=== PATIENT | male | born 1950 | race Caucasian/White ===

== ENCOUNTER 2024-12-20 11:54 | Inpatient (IN) | payer OTHER, SELFPAY ==
[2024-12-20] VITALS (10 sets, daily range): BP systolic 92–142; BP diastolic 51–76; PULSE 78–87; RESP 13–18; TEMP 36.5–37.3; O2SAT 82–99; BMI 42.6; BMI 35.7
--- NOTE | 2024-12-20 | ECG_ITS ---
Test Reason : stroke Blood Pressure : */* mmHG Vent. Rate : 86 BPM Atrial Rate : 86 BPM P-R Int : 204 ms QRS Dur : 98 ms QT Int : 382 ms P-R-T Axes : 30 0 38 degrees QTcB Int : 457 ms Artifact in tracing Normal sinus rhythm Normal ECG No previous ECGs available Referred By: Eliud Treviño Electronically Signed By: DYLON BELTRAN
--- NOTE | ~2024-12-20 | CT_ITS ---
EXAMINATION: CT HEAD WITHOUT CONTRAST (STROKE PROTOCOL) CLINICAL INFORMATION: Stroke protocol. COMPARISON: None available. TECHNIQUE: Contiguous axial imaging was performed from the skull base to vertex without intravenous administration of contrast. This CT examination was performed using dose optimization techniques as appropriate, variously including the following: *Automated exposure control *Adjustment of mA and/or kV according to patient size (this includes techniques or standardized protocols for targeted exams where dose is matched to indication/reason for exam; i.e. extremities or head) *Use of iterative reconstruction technique FINDINGS: No acute intracranial hemorrhage, mass effect, midline shift, hydrocephalus or herniation. Bilateral multifocal patchy and confluent deep periventricular white matter hypodensities. 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 Prominence of the extra-axial CSF spaces cerebral sulci and ventricles. Old lacunar infarcts in the basal ganglia. Cavum septal pellucidum and cavum Verga, congenital variant. Sellar/suprasellar region demonstrated no gross masses or focal hemorrhages. Craniocervical junction is intact. Calcified plaques in the cavernous supracavernous segments both ICA. No acute cortical disruption within the bony calvarium. No air-fluid levels in the included paranasal sinuses. Tympanic cavities and mastoid air cells are aerated. Probable high riding right internal jugular bulb. CT/CT head for STROKE IMPRESSION: No acute intracranial hemorrhage. Small vessel occlusive disease. Superimposed acute stroke/nonhemorrhagic ischemia cannot be excluded. Probable old encephalomalacic contusions, frontal rectus gyrus. Global cerebral atrophy. This critical result was discussed with emergency physician Dr. Eliud Treviño at 12:11 PM hours on December 20, 2024.. It was ascertained that the content and urgency of the report was understood at the time of direct communication. Electronically signed by: Augustin Chang MD 12/20/2024 12:16 PM [facility]
--- NOTE | ~2024-12-20 | CT_ITS ---
EXAMINATION: CT CERVICAL SPINE WITHOUT CONTRAST CLINICAL INFORMATION: Trauma. COMPARISON: None available. TECHNIQUE: Spiral CT imaging of the cervical spine performed in axial plane without contrast. Multiplanar reformatted images were constructed from the axial data set. This CT examination was performed using dose optimization techniques as appropriate, variously including the following: *Automated exposure control *Adjustment of mA and/or kV according to patient size (this includes techniques or standardized protocols for targeted exams where dose is matched to indication/reason for exam; i.e. extremities or head) *Use of iterative reconstruction technique FINDINGS: CORONAL ALIGNMENT: -Normal. SAGITTAL ALIGNMENT: -Minimal reversal of the normal lordosis seen at C6. -Trace degenerative anterolisthesis C3 on C4. Sagittal alignment otherwise anatomic. C1-C2 AND CRANIOCERVICAL JUNCTION: -Intact and normally aligned. Mild degenerative arthrosis at the anterior atlantoaxial articulation. VERTEBRAL BODIES AND FACETS: -No definite fracture, compression deformity, traumatic subluxation, or suspicious bone lesion. -Normal facet alignment bilaterally. The left C3-4 facets are fused. -Multilevel hypertrophic degenerative facet change bilaterally, most significant spanning C2-C5. DISCS: -Moderate multilevel disc degeneration present, most significant C5-6 and C6-7. -Spurring of the C2-3 disc. CENTRAL CANAL: -Patent within the confines of modality. No high-grade central canal narrowing is evident. PREVERTEBRAL AND PARAVERTEBRAL SOFT TISSUES: -Normal. -Retropharyngeal course of the right CCA and ICA. -Partial retropharyngeal course of the left CCA. -Moderate bilateral carotid bulb calcification. -Thyroid is normal in imaging appearance. LUNG APICES: -Diffuse opacity in the right lung apex, unable to further characterize. CT/CT cervical spine wo IV con IMPRESSION: 1. No CT evidence of acute cervical spine fracture or injury. Degenerative spondylosis as discussed. 2. Diffuse opacity in the right lung apex, unable to characterize further. Recommend correlating with chest radiograph. 3. Moderate bilateral carotid bulb calcification in retropharyngeal ICAs. Electronically signed by: Bandar Davison MD 12/20/2024 12:33 PM EST
--- NOTE | ~2024-12-20 | XR_ITS ---
EXAMINATION: XR CHEST CLINICAL INFORMATION: sob COMPARISON: None available. TECHNIQUE: Frontal view of the chest was obtained. FINDINGS: Cardiomediastinal silhouette overlaps the right hemithorax. Patchy opacities in the right lung. The left lung is aerated. No pneumothorax. There is a traumatic deformity with likely dislocated right common clavicular joint. XR/XR chest 1V IMPRESSION: Acute airspace disease with questionable atelectatic component suggesting intrinsic versus extrinsic compression upon the right pulmonary airway. Traumatic deformity right acromioclavicular joint. Malignancy cannot be excluded. Recommend contrast-enhanced CT chest. Electronically signed by: Augustin Chang MD 12/20/2024 01:38 PM EST
--- NOTE | ~2024-12-20 | CT_ITS ---
CLINICAL HISTORY: abnormal cxr CT CHEST WITHOUT CONTRAST Comparison: CR/OR/SR - XR CHEST 1V - 12/20/24 13:09 EST Findings: There is significant respiratory motion artifact. The heart is enlarged. There is no significant pericardial effusion. The thoracic aorta is ectatic with no aneurysmal dilatation. No thyromegaly or mediastinal lymphadenopathy. Small hiatal hernia. Multifocal airspace opacities and reticular interstitial changes throughout the right lung with right-sided volume loss. The trachea and left mainstem bronchus are patent. The mid to distal right mainstem bronchus appears attenuated /narrowed. There is limited evaluation of the hilar regions without IV contrast. No pleural effusion or pneumothorax. Probable bilateral renal cysts. The liver appears enlarged. Thoracic spondylosis with multilevel endplate osteophytes. IMPRESSION: 1. Image degradation secondary to significant respiratory motion artifact. 2. Multifocal infiltrates in the right lung secondary to inflammatory or infectious process. 3. Narrowing of the mid to distal right mainstem bronchus with no definite mucous plugging, secretions or endobronchial lesion. An adjacent mass with intrinsic compression cannot be excluded on the basis of this study alone. This document has been electronically signed by: Andria Marsh DO on 12/20/2024 17:35:20
--- NOTE | 2024-12-20 12:13 | ED_ITS ---
HPI - Fall General Chief Complaint: Fall Stated Complaint: [place] fall at 9am, r sided weakness, -thinners Time Seen by Provider: 12/20/24 11:59 Source: EMS Limitations: altered mental status History of Present Illness HPI Narrative: This is a 74 years old male not ambulatory at baseline history of dementia was brought here to a fall and altered mental status. According to the [facility] note he was found in the floor he was hypoxic and ambulance was called. He arrived lethargic unable to give any history. Patient is not anticoagulated patient has history of COPD. At baseline depend on all ADL MD complaint: fall Onset (ago): hour(s) (2) Fall witnessed: no Place fall occurred: [facility] Loss of consciousness: unsure Symptoms prior to fall: other (unknown) Related Data Allergies Allergy/AdvReac Type Severity Reaction Status Date / Time divalproex sodium Allergy Unknown Verified 12/20/24 12:05 [From [facility]] Review of Systems 2 Review of Systems: Yes Unobtainable due to mental condition and Unobtainable due to mental status [facility] Past Medical History Attestation statement: The following information was validated with the patient. [facility] Narrative: He has a history of COPD, dementia, he does not ambulate, baseline is incontinent of urine, dependent on the ADL, Social History Social History Advance Directives: Yes Advance Directives Information Provided: Yes Advance Directives on File: No Do you have a plan to hurt others: No Plan Physical Exam 2 Vital Signs: Vital Signs: Last Vital Signs Temp 99.1 F 12/20/24 12:38 Pulse 87 12/20/24 13:55 Resp 14 12/20/24 13:55 BP 101/64 12/20/24 13:55 Pulse Ox 92 12/20/24 13:55 O2 Del Method Nasal Cannula 12/20/24 13:55 O2 Flow Rate 6 12/20/24 13:55 BMI result Body Mass Index 42.6 No acute distress lethargic but easily arousable Patient is lethargic Const: General: no acute distress Nutritional Appearance: well nourished HEENT: Other: Examination of the head eyes ears nose and throat showed no facial droop no sign of trauma Head: Yes normal to inspection Ears: hearing grossly normal bilaterally General nose exam: Normal external nose present Face and sinus: Yes normal facial exam Mouth: Normal oral and palatal mucosa present Neck: Neck: Yes normal visual inspection and Yes full ROM Chest: Chest palpation & inspection: normal inspection of the chest Resp: Effort & Inspection: normal respiratory effort Auscultation: clear to auscultation bilaterally Cardio: Jugular venous distension: no JVD Rate: regular rate Rhythm: r egular rhythm GI: Inspection: Yes normal to inspection Palpation (GI): Soft to palpation, not firm and nontender Auscultation: normal bowel sounds Skin: General skin exam: no rashes or lesions noted Lesions: no lesions Rashes: no rashes Neuro: Other: He is awake and alert at this point is no focal he is able to raise both in the against gravity he is answering question Cranial nerves: Yes CN's II-XII intact bilaterally Course Reevaluation(s) Reevaluation #1: more awake IV established and secured by me Time: 14:10 Reevaluation #2: Pulled out his IV, uncooperative he has a history of dementia, he is on olanzapine at the [facility] we will give me his olanzapine. Very difficult stick another IV was placed in the right hand. Chest x-ray reviewed possible right pneumonia. His blood pressure is good, he has no tachycardic he is not tachypneic, he does have an oxygen requirement. He is I sensitive troponin is elevated but he has a normal electrocardiogram. IV antibiotic ordered, we will give him some fluids. We will repeat the troponin. At baseline he is quality of life is poor, he is not ambulatory he needs help for his ADL he is incontinent of urine. Looks like he has a guardian who is a needle straightener. ( Ginger Jones [phone]). Time: 15:35 Reevaluation #3: Spoke with cassidy Jones layer cell [phone] pt is full code Time: 15:36 Medications Administered Generic Name Dose Route Start Last Admin Trade Name Freq PRN Reason Stop Dose Admin Vancomycin HCl 1,250 mg/ 250 mls @ 166.667 mls/hr 12/20/24 14:48 12/20/24 15:03 Sodium Chloride IV 12/20/24 16:17 166.67 mls/hr ONCE ONE Administration Discontinued Medications Generic Name Dose Route Start Last Admin Trade Name Freq PRN Reason Stop Dose Admin Sodium Chloride 1,000 mls @ 999 mls/hr 12/20/24 13:30 12/20/24 14:38 Ns IVCONT 12/20/24 14:30 Infused .Q1H1M ERICKA Infusion Cefepime HCl 2 gm in 50 mls @ 100 mls/hr 12/20/24 14:38 12/20/24 15:32 Maxipime IV 12/20/24 15:07 Infused ONCE ONE Infusion Procedures EJ/Peripheral Line Arm L: Time Out Performed: Yes Skin Cleansed in Sterile Fashion: Yes Size (gauge): 20 IV Secured and Dressing Applied: Yes Patient Tolerated Procedure: well Additional Comments: I was asked by RN to establish IV,difficult stick. Under US guided cannulated left basilic vein with 20 G long catheter,blood obtained ,catheter flashed,line secured,tolerated procedure wellr Medical Decision Making Medical Decision Making MDM Narrative: Patient presented with altered mental status after fall we will get a CT C-spine Differential Diagnosis Differential Diagnoses: The differential diagnosis associated with the presentation includes Subdural hematoma epidural hematoma/hypoglycemia/hypercarbia Admission/Observation Consideration of admission/observation: Escalation of care including admission/observation considered Consult Healthcare Provider Management of the patient was discussed with: Hospitalist Lab Data MDM Lab Attestation statement: I reviewed the patient's lab results. 12/20/24 12:54 12/20/24 12:54 Labs: Lab Results 12/20/24 12/20/24 12/20/24 Range/Units 12:54 13:03 14:57 WBC 10.7 (4.8-10.8) X10*3/uL RBC 5.02 (4.60-5.80) X10*6/uL Hgb 13.5 L (14.0-18.0) g/dl Hct 43.8 (42.0-52.0) % MCV 87.3 (80.0-98.0) fL MCH 26.9 L (27.0-33.0) pg MCHC 30.8 L (31.0-36.0) g/dl RDW 15.6 (11.0-16.0) % Plt Count 226 (160-400) X10*3/uL MPV 10.9 (9.4-12.4) fL Immature Gran % (Auto) 0.5 H (0.0-0.4) % Neut % (Auto) 79.2 H (45-73) % Lymph % (Auto) 8.6 L (20-40) % [place] % (Auto) 6.1 (2-11) % Eos % (Auto) 5.1 H (0-4) % Baso % (Auto) 0.5 (0-2) % Lymph # (Auto) 0.9 L (1.2-4.9) X10*3/uL [place] # (Auto) 0.7 (0.1-1.2) X10*3/uL Eos # (Auto) 0.6 H (0.0-0.4) X10*3/uL Baso # (Auto) 0.1 (0.0-0.2) X10*3/uL Abs Immat Gran (auto) 0.05 H (0.00-0.03) X10*3/uL Absolute Neuts (auto) 8.5 H (2.0-8.3) x10*3/uL Absolute Nucleated RBC 0.000 (0.0-0.012) X10*3/uL Nucleated RBC % (auto) 0.0 (0.0-0.2) /100WBC VBG pH 7.35 (7.32-7.43) VBG pCO2 46 mmHg VBG pO2 29 mmHg VBG HCO3 26 (22-26) mmol/L VBG O2 Saturation 39.0 % VBG Base Excess 0.2 mmol/L Sodium 145 (135-145) mmol/L Potassium 4.0 (3.3-5.1) mmol/L Chloride 114 H (96-108) mmol/L Carbon Dioxide 24 (22-29) mmol/L Anion Gap 11 L (12-20) BUN 37 H (9-16) mg/dL Creatinine 1.30 (0.5-1.4) mg/dL Estim Creat Clear Calc 83.9 Estimated GFR 54 Random Glucose 96 (60-115) mg/dL Lactic Acid 2.7 H* (0.5-2.0) mmol/L Calcium 10.0 (8.4-10.2) mg/dL Magnesium 2.5 (1.6-2.6) mg/dL Total Bilirubin 0.3 (0.0-1.0) mg/dL Direct Bilirubin 0.2 (0.0-0.5) mg/dL AST 46 H (5-37) U/L ALT 40 (0-40) U/L Alkaline Phosphatase 66 (39-117) U/L Troponin I High Sens 444.5 H* 375.1 H* (<3.5-35.0) ng/L Total Protein 8.4 H (6.5-8.0) g/dL Albumin 3.9 (3.5-5.0) g/dL Urine Color Urine Appearance Urine pH (5.0-9.0) Ur Specific [place] (1.005-1.025) Urine Protein (Neg-Trace) mg/dL Urine Glucose (UA) (Negative) mg/dL Urine Ketones (Negative) mg/dL Urine Blood (Negative) Urine Nitrite (Negative) Ur Leukocyte Esterase (Negative) 12/20/24 Range/Units 15:22 WBC (4.8-10.8) X10*3/uL RBC (4.60-5.80) X10*6/uL Hgb (14.0-18.0) g/dl Hct (42.0-52.0) % MCV (80.0-98.0) fL MCH (27.0-33.0) pg MCHC (31.0-36.0) g/dl RDW (11.0-16.0) % Plt Count (160-400) X10*3/uL MPV (9.4-12.4) fL Immature Gran % (Auto) (0.0-0.4) % Neut % (Auto) (45-73) % Lymph % (Auto) (20-40) % [place] % (Auto) (2-11) % Eos % (Auto) (0-4) % Baso % (Auto) (0-2) % Lymph # (Auto) (1.2-4.9) X10*3/uL [place] # (Auto) (0.1-1.2) X10*3/uL Eos # (Auto) (0.0-0.4) X10*3/uL Baso # (Auto) (0.0-0.2) X10*3/uL Abs Immat Gran (auto) (0.00-0.03) X10*3/uL Absolute Neuts (auto) (2.0-8.3) x10*3/uL Absolute Nucleated RBC (0.0-0.012) X10*3/uL Nucleated RBC % (auto) (0.0-0.2) /100WBC VBG pH (7.32-7.43) VBG pCO2 mmHg VBG pO2 mmHg VBG HCO3 (22-26) mmol/L VBG O2 Saturation % VBG Base Excess mmol/L Sodium (135-145) mmol/L Potassium (3.3-5.1) mmol/L Chloride (96-108) mmol/L Carbon Dioxide (22-29) mmol/L Anion Gap (12-20) BUN (9-16) mg/dL Creatinine (0.5-1.4) mg/dL Estim Creat Clear Calc Estimated GFR Random Glucose (60-115) mg/dL Lactic Acid (0.5-2.0) mmol/L Calcium (8.4-10.2) mg/dL Magnesium (1.6-2.6) mg/dL Total Bilirubin (0.0-1.0) mg/dL Direct Bilirubin (0.0-0.5) mg/dL AST (5-37) U/L ALT (0-40) U/L Alkaline Phosphatase (39-117) U/L Troponin I High Sens (<3.5-35.0) ng/L Total Protein (6.5-8.0) g/dL Albumin (3.5-5.0) g/dL Urine Color Yellow Urine Appearance Hazy Urine pH 8.5 (5.0-9.0) Ur Specific [place] 1.010 (1.005-1.025) Urine Protein 30 (1+) H (Neg-Trace) mg/dL Urine Glucose (UA) Negative (Negative) mg/dL Urine Ketones Negative (Negative) mg/dL Urine Blood Small (1+) H (Negative) Urine Nitrite Positive H (Negative) Ur Leukocyte Esterase Large (3+) H (Negative) Independent Interpretation I performed an independent interpretation of an: EKG and Plain X-Ray Interpretation: Normal sinus rhythm rate [address]-T changes I personally reviewed interpreted the chest x-ray as right pneumonia Radiology Impression Discussion of test interpretation with radiology: I have reviewed the radiologist's reading. Independent Historian Clinical information obtained from an independent historian. History obtained from or confirmed by: EMS [facility] documents Chronic Conditions Patient?s care impacted by: Other (COPD/dementia) Critical Care Time Critical Care Time Critical Care Time: Yes Total Critical Care Time: 90 Attestation: taking care of the pt,reviewing NH record ,speaking with proxy/hospitalist Discharge Plan Discharge Clinical Impression: Hypoxia, Elevated troponin Altered mental status Qualifiers: Altered mental status type: unspecified Qualified Code(s): R41.82 - Altered mental status, unspecified Pneumonia involving right lung Qualifiers: Pneumonia type: due to unspecified organism Lung location: unspecified part of lung Qualified Code(s): J18.9 - Pneumonia, unspecified organism Patient Disposition: Admitted As Inpatient Print Language: Slovak
[2024-12-20 13:02] LABS: MANUAL DIFF FLAG NO
[2024-12-20 13:03] LABS: Basophils Absolute Auto 0.1 X10*3/uL (0.0-0.2); Basophils Percent Auto 0.5 % (0-2); Eosinophils Absolute Auto 0.6 X10*3/uL (0.0-0.4); Eosinophils Percent Auto 5.1 % (0-4); Hematocrit 43.8 % (42.0-52.0); Hemoglobin 13.5 g/dl (14.0-18.0); Imm Gran Abs Auto 0.05 X10*3/uL (0.00-0.03); Imm Gran Pct Auto 0.5 % (0.0-0.4); Lymphocytes Absolute Auto 0.9 X10*3/uL (1.2-4.9); Lymphocytes Percent Auto 8.6 % (20-40); Mean Corpuscular HGB Conc 30.8 g/dl (31.0-36.0); Mean Corpuscular Hemoglobin 26.9 pg (27.0-33.0); Mean Corpuscular Volume 87.3 fL (80.0-98.0); Mean Platelet Volume 10.9 fL (9.4-12.4); Monocytes Absolute Auto 0.7 X10*3/uL (0.1-1.2); Monocytes Percent Auto 6.1 % (2-11); Neutrophils Absolute Auto 8.5 x10*3/uL (2.0-8.3); Neutrophils Percent Auto 79.2 % (45-73); Platelet Count 226 X10*3/uL (160-400); Red Blood Count 5.02 X10*6/uL (4.60-5.80); Red Cell Distribution Width 15.6 % (11.0-16.0); White Blood Count 10.7 X10*3/uL (4.8-10.8)
[2024-12-20 13:08] LABS: VBG Base Excess 0.2 mmol/L; VBG HCO3 26 mmol/L (22-26); VBG pCO2 46 mmHg; VBG pH 7.35 (7.32-7.43); VBG pO2 29 mmHg
[2024-12-20 13:09] LABS: Venous Blood Gas Refer to POC result
--- NOTE | 2024-12-20 13:15 | PC.NURSE ---
[facility] unwitnessed fall x 0900 this morning. pt found on ground after being down for unknown amount of time. ?headstrike, ?loc, -thinners. pt noted to be 82% on RA - placed on 15L via nonrebreather by EMS w/ good effect. SNF also reports increased weakness/AMS. upon EMS arrival - pt alert and oriented to name only. per EMS, this is pt's baseline. pt uncooperative, aggressive towards staff, noncompliant w/ medical devices. attempted to place pt on 2L via NC as he is on RA baseline but pt unable to maintain SPO2. pt titrated up to 6L via NC but unable to tolerate. pt then transitioned to 6L via oxymask. no respiratory distress noted. no wheezing noted. no sob/wob noted. respirations even/unlabored. pt is an extremely difficult stick. multiple attempts made at obtaining IV access as well as tech obtaining blood work. 20g ultrasound guided IV placed in the left upper arm by MD. labs obtained/sent to lab. IV access wrapped w/ gauze for safety precautions. pt turned/repositioned to comfort. [place] catheter in place d/t pt being incontinent of urine/fecal matter upon EMS arrival. plan of care ongoing. call patel placed within reach.
[2024-12-20 13:20] LABS: Alanine Aminotransferase 40 U/L (0-40); Albumin Level 3.9 g/dL (3.5-5.0); Alkaline Phosphatase 66 U/L (39-117); Anion Gap 11 (12-20); Aspartate Amino Transferase 46 U/L (5-37); Bilirubin Direct 0.2 mg/dL (0.0-0.5); Bilirubin Total 0.3 mg/dL (0.0-1.0); Blood Urea Nitrogen 37 mg/dL (9-16); Carbon Dioxide 24 mmol/L (22-29); Chloride 114 mmol/L (96-108); Creatinine Clr Calc Pharmacy 83.9; Estimated Glomerular Filt Rate 54; Glucose Random 96 mg/dL (60-115); Magnesium 2.5 mg/dL (1.6-2.6); Sodium 145 mmol/L (135-145); Total Protein 8.4 g/dL (6.5-8.0)
[2024-12-20 13:29] LABS: Troponin-I High Sensitivity 444.5 ng/L (<3.5-35.0)
[2024-12-20] MEDS: 0.9 % Sodium Chloride 1,000 ML 999 ML IVCONT (13:37)
[2024-12-20] MEDS: cefEPime HCl/D5W 2 GM/50 ML PIGGYBACK IV (15:02)
[2024-12-20] MEDS: vancomycin HCL 1,250 MG in 0.9 % Sodium Chloride 250 ML 166.67 MG IV (15:03)
--- NOTE | 2024-12-20 15:08 | PC.NURSE ---
pt remains altered/uncooperative w/ staff and interfering w/ medical equipment. pt ripping off oxygen, monitoring and evaluation advisor, and discontinued ultrasound guided IV. pt placed in sift restraints. 22gIV placed in the right thumb - repeat labs obtained/sent to lab. abx administered per provider order. pt otherwise remains on 6L via NC at this time. no apparent respiratory distress. no sob/wob noted. respirations even/unlabored. plan of care ongoing.
[2024-12-20 15:31] LABS: Appearance Urine Hazy; Color Urine Yellow; Glucose Urine UA Negative (Negative); Leukocyte Esterase Urine Large (3+) (Negative); Nitrite Urine Positive (Negative); PH 8.5 (5.0-9.0); UMIC TRIGGER UACC YES; Urine Blood Small (1+) (Negative); Urine Ketones Negative (Negative); Urine Protein 30 (1+) mg/dL (Neg-Trace)
[2024-12-20 15:34] LABS: Lactic Acid 2.7 mmol/L (0.5-2.0)
[2024-12-20 15:38] LABS: Troponin-I High Sensitivity 375.1 ng/L (<3.5-35.0)
[2024-12-20 15:41] LABS: RBC Urine 0-2 /HPF (0-2); UACC Culture Trigger YES; WBC Urine 21-50 /HPF (0-5)
[2024-12-20 15:42] LABS: Bacteria Urine 4+ (None Seen); Hyaline Casts Urine 0-2 /LPF (0-2); Other Crystals Urine Present
[2024-12-20] MEDS: Albuterol/Iprat 2.5/0.5MG 3 ML AMPUL.NEB INHALE ×2 (15:47→20:11)
[2024-12-20] MEDS: OLANZapine 7.5 MG TABLET PO (15:47)
--- NOTE | 2024-12-20 16:00 | PC.NURSE ---
pt passed nursing swallow evaluation w/o difficulty. pt medicated per provider order. medication crushed/administered w/ applesauce. pt tolerated well. pt otherwise remains in soft restraints at this time d/t continuously attempting to interfere w/ medical equipment. pt currently remains on 3L via oxymask at this time. plan of care ongoing.
--- NOTE | 2024-12-20 16:02 | PM.IMHP ---
History of Present Illness Date of Service: 12/20/24 Chief Complaint: Fall 74 m from SNF brought in after fall. He has advanced cognitive impairment and doesn't communicate and presented from assisted after having an unwitnessed from , he was brought in [address] showed no acute finding, Cervical spine CT no fracture. A routine CXR showed a Pneumonia, O2 saturation is 88 to 89 on room air and better with oxygen. . WBC is normal, troponin I level was 444 now 375, he reports no chest pain. ECG showed no acute ischemic changes. He has been very agitated, removing IVs, and resisting care and was given Zyprexa and soft wrist restraint. Review of Systems Review of Systems: [facility] Social History Household Members: Other Housing: Snf Comment: sitter in room Patient Tobacco Use Status: Tobacco use Unknown Use of substances other than those prescribed or required for medical reasons: Unable to respond Currently Displaying Signs/Symptoms of Drug Intoxication Withdrawal: No Advance Directives: Yes Advance Directives Information Provided: Yes Advance Directives on File: No Advance Directives Date on File: 12/20/24 Do you have a plan to hurt others: No Plan Nutrition Risks: No Nutritional Risk service: No Meds Allergies Allergy/AdvReac Type Severity Reaction Status Date / Time divalproex sodium Allergy Unknown Verified 12/20/24 12:05 [From [facility]] Active Medications: Current Medications Vancomycin HCl 1,250 mg/ (Sodium Chloride) 250 mls @ 166.667 mls/hr IV ONCE ONE Stop: 12/20/24 16:17 Last Admin: 12/20/24 15:03 Dose: 166.67 mls/hr Home Medications ?Medication ?Instructions ?Recorded ?Confirmed ?Last Taken ?Type acetaminophen 500 mg tablet 1,000 mg PO TID 12/20/24 12/20/24 Unknown History allopurinol 100 mg tablet 100 mg PO DAILY 12/20/24 12/20/24 Unknown History aluminum-mag hydroxide-simethicone 10 ml PO Q6H PRN GI UPSET 12/20/24 12/20/24 Unknown History 200 mg-200 mg-20 mg/5 mL oral susp aspirin 81 mg chewable tablet 81 mg PO DAILY 12/20/24 12/20/24 Unknown History bisacodyl 5 mg tablet 10 mg PO Q24H PRN Constipation 12/20/24 12/20/24 Unknown History carboxymethylcellulose sodium 0.5 1 drp ophthalmic (eye) Q8H PRN Dry 12/20/24 12/20/24 Unknown History % eye drops Eyes clotrimazole 1 % topical cream 1 appl topical DAILY 12/20/24 12/20/24 Unknown History diphenhydramine HCl 50 mg/mL 25 mg IM DAILY PRN Anaphylaxis 12/20/24 12/20/24 Unknown History injection solution epinephrine 0.3 mg/0.3 mL 0.3 mg IM Q5M PRN Anaphylaxis 12/20/24 12/20/24 Unknown History injection, auto-injector guaifenesin 600 mg tablet, 600 mg PO BID 12/20/24 12/20/24 Unknown History extended release 12 hr (Mucinex) haloperidol 5 mg tablet 5 mg PO BID 12/20/24 12/20/24 Unknown History ipratropium 20 mcg-albuterol 100 1 puff inhalation QID 12/20/24 12/20/24 Unknown History mcg/actuation mist for inhalation levothyroxine 88 mcg tablet 88 mcg PO DAILY 12/20/24 12/20/24 Unknown History lithium carbonate 300 mg capsule 300 mg PO BEDTIME 12/20/24 12/20/24 Unknown History magnesium hydroxide 400 mg/5 mL 30 ml PO DAILY PRN Constipation 12/20/24 12/20/24 Unknown History oral suspension (Milk of Magnesia) multivitamin 1 tab PO DAILY 12/20/24 12/20/24 Unknown History olanzapine 5 mg tablet 5 mg PO DAILY 12/20/24 12/20/24 Unknown History olanzapine 7.5 mg tablet 7.5 mg PO BEDTIME 12/20/24 12/20/24 Unknown History omeprazole 20 mg capsule,delayed 20 mg PO DAILY 12/20/24 12/20/24 Unknown History release polyethylene glycol 3350 17 gram 17 g PO DAILY 12/20/24 12/20/24 Unknown History oral powder packet (Miralax) rosuvastatin 20 mg tablet 20 mg PO DAILY 12/20/24 12/20/24 Unknown History sodium chloride 0.65 % nasal spray 2 spray intranasal Q2H PRN 12/20/24 12/20/24 Unknown History aerosol (Saline Nasal) Congestion sodium phosphates 19 gram-7 118 ml MA DAILY PRN Constipation 12/20/24 12/20/24 Unknown History gram/118 mL enema (Fleet Enema) tamsulosin 0.4 mg capsule (Flomax) 0.4 mg PO BEDTIME 12/20/24 12/20/24 Unknown History Physical Exam Vital Signs and Narrative: Vital Signs: Last Vital Signs Temp 99.1 F 12/20/24 12:38 Pulse 86 12/20/24 15:43 Resp 13 12/20/24 15:43 BP 101/64 12/20/24 13:55 Pulse Ox 92 12/20/24 13:55 O2 Del Method Nasal Cannula 12/20/24 13:55 O2 Flow Rate 6 12/20/24 13:55 BMI result Body Mass Index 42.6 Results Labs 12/20/24 12:54 12/21/24 05:31 Labs: Laboratory Results - last 24 hr 12/20/24 12/20/24 12/20/24 12:54 13:03 14:57 MCV 87.3 MCH 26.9 L MCHC 30.8 L RDW 15.6 Plt Count 226 MPV 10.9 Immature Gran % (Auto) 0.5 H Neut % (Auto) 79.2 H Lymph % (Auto) 8.6 L [place] % (Auto) 6.1 Eos % (Auto) 5.1 H Baso % (Auto) 0.5 Lymph # (Auto) 0.9 L [place] # (Auto) 0.7 Eos # (Auto) 0.6 H Baso # (Auto) 0.1 Abs Immat Gran (auto) 0.05 H Absolute Neuts (auto) 8.5 H Absolute Nucleated RBC 0.000 Nucleated RBC % (auto) 0.0 VBG pH 7.35 VBG pCO2 46 VBG pO2 29 VBG HCO3 26 VBG O2 Saturation 39.0 VBG Base Excess 0.2 Anion Gap 11 L Estim Creat Clear Calc 83.9 Estimated GFR 54 Random Glucose 96 Lactic Acid 2.7 H* Calcium 10.0 Magnesium 2.5 Total Bilirubin 0.3 Direct Bilirubin 0.2 AST 46 H ALT 40 Alkaline Phosphatase 66 Total Protein 8.4 H Albumin 3.9 Urine Color Urine Appearance Urine pH Ur Specific [place] Urine Protein Urine Glucose (UA) Urine Ketones Urine Blood Urine Nitrite Ur Leukocyte Esterase Urine RBC Urine WBC Ur Squamous Epith Cells Other Crystals Urine Bacteria Hyaline Casts 12/20/24 15:22 MCV MCH MCHC RDW Plt Count MPV Immature Gran % (Auto) Neut % (Auto) Lymph % (Auto) [place] % (Auto) Eos % (Auto) Baso % (Auto) Lymph # (Auto) [place] # (Auto) Eos # (Auto) Baso # (Auto) Abs Immat Gran (auto) Absolute Neuts (auto) Absolute Nucleated RBC Nucleated RBC % (auto) VBG pH VBG pCO2 VBG pO2 VBG HCO3 VBG O2 Saturation VBG Base Excess Anion Gap Estim Creat Clear Calc Estimated GFR Random Glucose Lactic Acid Calcium Magnesium Total Bilirubin Direct Bilirubin AST ALT Alkaline Phosphatase Total Protein Albumin Urine Color Yellow Urine Appearance Hazy Urine pH 8.5 Ur Specific [place] 1.010 Urine Protein 30 (1+) H Urine Glucose (UA) Negative Urine Ketones Negative Urine Blood Small (1+) H Urine Nitrite Positive H Ur Leukocyte Esterase Large (3+) H Urine RBC 0-2 Urine WBC 21-50 Ur Squamous Epith Cells 3-5 Other Crystals Present Urine Bacteria 4+ Hyaline Casts 0-2 Imaging Radiologist's Impressions: Impressions Head CT 12/20/24 11:59 IMPRESSION: No acute intracranial hemorrhage. Small vessel occlusive disease. Superimposed acute stroke/nonhemorrhagic ischemia cannot be excluded. Probable old encephalomalacic contusions, frontal rectus gyrus. Global cerebral atrophy. This critical result was discussed with emergency physician Dr. Eliud Treviño at 12:11 PM hours on December 20, 2024.. It was ascertained that the content and urgency of the report was understood at the time of direct communication. Electronically signed by: Augustin Chang MD 12/20/2024 12:16 PM EST RP Cervical Spine CT 12/20/24 12:02 IMPRESSION: 1. No CT evidence of acute cervical spine fracture or injury. Degenerative spondylosis as discussed. 2. Diffuse opacity in the right lung apex, unable to characterize further. Recommend correlating with chest radiograph. 3. Moderate bilateral carotid bulb calcification in retropharyngeal ICAs. Electronically signed by: Bandar Davison MD 12/20/2024 12:33 PM EST RP Chest X-Ray 12/20/24 13:15 IMPRESSION: Acute airspace disease with questionable atelectatic component suggesting intrinsic versus extrinsic compression upon the right pulmonary airway. Traumatic deformity right acromioclavicular joint. Malignancy cannot be excluded. Recommend contrast-enhanced CT chest. Electronically signed by: Augustin Chang MD 12/20/2024 01:38 PM [facility] Assessment and Plan (1) Hypoxia: Status: Acute (2) Pneumonia involving right lung: Qualifiers: Lung location: unspecified part of lung Pneumonia type: due to unspecified organism Qualified Code(s): J18.9 - Pneumonia, unspecified organism Status: Acute (3) Elevated troponin: Status: Acute Plan 74 m from SNF brought in after fall. He has advanced cognitive impairment and doesn't communicate and presented from assisted after having an unwitnessed from , he was brought in [address] showed no acute finding, Cervical spine CT no fracture. A routine CXR showed a Pneumonia, O2 saturation is 88 to 89 on room air and better with oxygen. Acute hypoxic respiratory failure due to PNA and likely hypoventilation continue Abx UTI same Abx as above Elevated troponin, 444 to 375 likely type 2 mi from above hold anticoagulation cardiology consultations Hypothyroidism synthroid HLD statin BPH -Flomax Morbid obesity weight loss advise Acute lactic acidosis d/t hypoxia cognitive impairment, mood issues and behavior issues continue home meds dvt prophylaxis: levenox Diet: regular Full code per guardian Quality Stroke Does the patient have a stroke diagnosis?: No VTE Prior VTE?: No VTE Risk Level:: Medical - moderate - high VTE Device Contraindication: Treatment Not Indicated VTE Drug Contraindication: N/A - Med Ordered
[2024-12-20 16:39] LABS: Influenza A PCR NEGATIVE (Negative); Influenza B PCR NEGATIVE (Negative); Resp Syncy Virus RNA Qual PCR NEGATIVE (Negative); SARS COV2 PCR INHOUSE NEGATIVE (Negative)
[2024-12-20 17:03] LABS: Reflex Lactate? Lactic Acid Added
--- NOTE | 2024-12-20 17:28 | PC.NURSE ---
soft restraints removed from upper extremities bilaterally at this time. pt tolerating transition well. pt remains calm/cooperative. not interfering w/ medical equipment at this time. pt remains on 3L via oxymask at this time. positioned upright to promote patent airway. plan of care ongoing. call patel placed within reach.
[2024-12-20 17:35] LABS: ~Lactic Acid-LAB USE ONLY 1.6 mmol/L (0.5-2.0)
--- NOTE | 2024-12-20 17:55 | PHA.MEDREC ---
Pharmacy Consult ? Medication Reconciliation Pharmacy has completed the medication reconciliation. Med list obtained from [facility]
--- OUTSIDE RECORDS SUMMARY | 2024-12-20 17:55 | XMS_ITS | Encounter Summary ---
Author Organization [employer] Address [address] [place] [address] Care Team Providers Care Fiberglass Boat Assembly Supervisor Name Role Phone Josh Pretty MD Primary Care Provider [phone] Encounter Details Date Type Department Care Team (Late st Contact Info) Description 11/25/2024 Lab Requisition [facility] Lab [address] [place] [address] Josh Pretty MD [address] [place] [address] Urinary tract infection, site not specified; Weakness Social History Tobacco Use Types Packs/Day Years Used Date Smoking Tobacco: Never Assessed Sex and Gender Information Value Date Recorded Sex Assigned at Not on file Legal Sex Male 3:40 PM EDT Gender Identity Not on file Sexual Orientation Not on file documented as of this encounter Plan of Treatment Not on file documented as of this encounter Procedures Procedure Name Priority Date/Time Associated Diagnosis Comments URINALYSIS WITH REFLEX MICROSCOPIC Routine 11/24/2024 12:00 AM EST Urinary tract infection, site not specified Weakness URINALYSIS WITH REFLEX MICROSCOPIC Routine 11/24/2024 12:00 AM EST Urinary tract infection, site not specified Weakness CULTURE URINE Routine 11/24/2024 12:00 AM EST Urinary tract infection, site not specified Weakness documented in this encounter Results * Urinalysis with reflex microscopic (11/24/2024 12:00 AM EST) Specific [place] Urine 1.015 1.003 - 1.030 LAB URINALYSIS - AUTOMATED METHOD 11/25/2024 10:45 AM EST [facility] pH, Urine 7.0 5.0 - 8.0 pH LAB URINALYSIS - AUTOMATED METHOD 11/25/2024 10:45 AM [facility] LAB Leukocytes, Urine Negative Negative LAB URINALYSIS - AUTOMATED METHOD 11/25/2024 10:45 AM [facility] LAB Nitrite, Urine Negative Negative LAB URINALYSIS - AUTOMATED METHOD 11/25/2024 10:45 AM [facility] LAB Protein, Urine Negative <=Trace mg/dL LAB URINALYSIS - AUTOMATED METHOD 11/25/2024 10:45 AM [facility] LAB Glucose, Urine Negative Negative mg/dL LAB URINALYSIS - AUTOMATED METHOD 11/25/2024 10:45 AM [facility] LAB Ketones, Urine Negative Negative mg/dL LAB URINALYSIS - AUTOMATED METHOD 11/25/2024 10:45 AM [facility] LAB Urobilinogen, Urine 1.0 0.2 - 1.0 mg/dL LAB URINALYSIS - AUTOMATED METHOD 11/25/2024 10:45 AM [facility] LAB Bilirubin, Urine Negative Negative LAB URINALYSIS - AUTOMATED METHOD 11/25/2024 10:45 AM [facility] LAB Blood, Urine Negative Negative LAB URINALYSIS - AUTOMATED METHOD 11/25/2024 10:45 AM [facility] LAB Urine Urine specimen obtained by clean catch procedure / Unknown Non-blood Collection / Unknown 11/24/2024 11/25/2024 10:19 AM EST us Josh Pretty MD LAB URINE ORDERABLES Final R esult [facility] LAB [address] [place] [address], * Culture urine (11/24/2024 12:00 AM EST) Culture, Urine No growth 11/26/2024 8:42 AM [facility] LAB Urine Urine specimen obtained by clean catch procedure / Unknown Non-blood Collection / Unknown 11/24/2024 11/25/2024 10:19 AM EST Josh Pretty MD LAB MICROBIOLOGY - GENERAL O RDERABLES Final Result [facility] [address] [place] [address], documented in this encounter Visit Diagnoses Diagnosis Urinary tract infection, site not specified Weakness Other malaise and fatigue documented in this encounter Care Teams Fiberglass Boat Assembly Supervisor Relationship Specialty Start Date End Date Josh Pretty MD [address] [place] [address] PCP - General Family Medicine 09/20/24 documented as of this encounter
--- OUTSIDE RECORDS SUMMARY | 2024-12-20 17:55 | XMS_ITS | Encounter Summary ---
Author Organization [facility] Address [address] [place] [address] Care Team Providers Care Construction Stonemason Name Role Phone Josh Pretty MD Primary Care Provider [phone] Encounter Details Date Type Department Care Team (Latest Contact Info) Description 11/03/2024 Lab Requisition [facility] Lab [address] [place] [address] Josh Pretty MD [facility] [place] [address] Schizoaffective disorder, unspecified (CMS/HCC) Social History Tobacco Use Types Packs/Day Years [...] Procedure Name Priority Date/Time Associated Diagnosis Comments LITHIUM LEVEL Routine 11/04/2024 8:00 AM EST Schizoaffective disorder, unspecified (CMS/HCC) documented in this encounter Results * [place] level (11/04/2024 8:00 AM EST) [place] Level 0.6 0.6 - 1.2 mEq/L LAB CHEMISTRY METHOD 11/04/2024 10:[address] [facility] LAB Blood Venous blood specimen / Unknown Venipuncture / Unknown 11/04/2024 8:00 AM EST 11/04/2024 10:07 AM EST us Josh Pretty MD LAB BLOOD ORDERABLES Final R esult [facility] LAB [address] [place] [address], documented in this encounter Visit Diagnoses Diagnosis Schizoaffective disorder, unspecified (CMS/HCC) documented in this encounter Additional Health Concerns Infection Onset Date Last Indicated Resolved Time Influenza 10/21/2024 10/21/2024 11/14/2024 7:05 PM EST documented as of this encounter Care Teams Construction Stonemason Relationship Specialty Start Date End Date Josh Pretty MD [address] [place] [address] PCP - General Family Medicine 09/20/24 documented as of this encounter
--- OUTSIDE RECORDS SUMMARY | 2024-12-20 17:55 | XMS_ITS | Encounter Summary ---
Author Organization [facility] Address [address] [place] [address] Care Team Providers Care Newspaper Press Operator Apprentice Name Role Phone Josh Pretty MD Primary Care Provider Encounter Details Date Type Department Care Team (Latest Contact Info) Description 10/05/2024 Lab Requisition [facility] Lab [address] [place] [address] Josh Pretty MD [facility] [place] [address] Schizoaffective disorder, bipolar type (CMS/HCC) Social History Tobacco Use Types Packs/Day [...] Procedure Name Priority Date/Time Associated Diagnosis Comments COMPLETE BLOOD COUNT Routine 10/05/2024 5:01 AM EST Schizoaffective disorder, bipolar type (CMS/HCC) BASIC METABOLIC PANEL Routine 10/05/2024 5:01 AM EST Schizoaffective disorder, bipolar type (CMS/HCC) documented in this encounter Results * (ABNORMAL) Basic metabolic panel (10/05/2024 5:01 AM EST) Sodium 143 133 - 145 mmol/L LAB CHEMISTRY METHOD 10/05/2024 10:38 AM EST [facility] LAB Potassium 4.2 3.5 - 5.5 mmol/L LAB CHEMISTRY METHOD 10/05/2024 10:38 AM EST [facility] LAB Chloride 111(H) 96 - 110 mmol/L LAB CHEMISTRY METHOD 10/05/2024 10:38 AM [facility] LAB CO2 25 21 - 32 mmol/L LAB CHEMISTRY METHOD 10/05/2024 10:38 AM [facility] LAB Anion Gap 7 3 - 11 LAB CHEMISTRY METHOD 10/05/2024 10:38 AM [facility] LAB Glucose 85 70 - 100 mg/dL LAB CHEMISTRY METHOD 10/05/2024 10:38 AM [facility] BUN 20 5 - 25 mg/dL LAB CHEMISTRY METHOD 10/05/2024 10:38 AM [facility] LAB Creatinine 1.20 0.70 - 1.30 mg/dL LAB CHEMISTRY METHOD 10/05/2024 10:38 AM [facility] LAB eGFR 64 >=60 mL/min/1. 73m2 LAB CHEMISTRY METHOD 10/05/2024 10:38 AM [facility] LAB Comment:Calculation based on the??Chronic Kidney Disease Epidemiology Collaboration (CKD-EPI) equation refit??without adjustment for race. BUN/Creatinine Ratio 16.7 LAB CHEMISTRY METHOD 10/05/2024 10:38 AM [facility] LAB Calcium 9.4 8.5 - 10.5 mg/dL LAB CHEMISTRY METHOD 10/05/2024 10:38 AM [facility] LAB Blood Venous blood specimen / Unknown Venipuncture / Unknown 10/05/2024 5:01 AM EST 10/05/2024 9:35 AM EST us Josh Pretty MD LAB BLOOD ORDERABLES Final R esult [facility] LAB [address] [place] [address], * (ABNORMAL) Complete blood count (10/05/2024 5:01 AM EST) WBC 6.3 4.8 - 10.8 K/mcL LAB HEMETOLOGY METHOD 10/05/2024 10:07 AM [facility] LAB RBC 4.20(L) 4.50 - 5.50 M/mcL LAB HEMETOLOGY METHOD 10/05/2024 10:07 AM [facility] LAB Hemoglobin 11.8(L) 13.5 - 17.5 g/dL LAB HEMETOLOGY METHOD 10/05/2024 10:07 AM [facility] LAB Hematocrit 38.1(L) 42.0 - 54.0 % LAB HEMETOLOGY METHOD 10/05/2024 10:07 AM [facility] LAB MCV 90.5 79.0 - 98.0 FL LAB HEMETOLOGY METHOD 10/05/2024 10:07 AM [facility] LAB MCH 28.0 27.0 - 32.0 pcg LAB HEMETOLOGY METHOD 10/05/2024 10:07 AM [facility] LAB MCHC 31.0(L) 32.0 - 37.0 g/dL LAB HEMETOLOGY METHOD 10/05/2024 10:07 AM [facility] LAB RDW 14.5 11.0 - 15.0 % LAB HEMETOLOGY METHOD 10/05/2024 10:07 AM [facility] LAB Platelets 169 130 - 400 K/mcL LAB HEMETOLOGY METHOD 10/05/2024 10:07 AM [facility] LAB MPV 12.1(H) 7.0 - 11.0 FL LAB HEMETOLOGY METHOD 10/05/2024 10:07 AM [facility] LAB NRBC 0.0 <1.0 % LAB HEMETOLOGY METHOD 10/05/2024 10:07 AM [facility] LAB NRBC Absolute 0.00 <0.10 K/mcL LAB HEMETOLOGY METHOD 10/05/2024 10:07 AM [facility] LAB Blood Venous blood specimen / Unknown Venipuncture / Unknown 10/05/2024 5:01 AM EST 10/05/2024 9:35 AM EST us Josh Pretty MD LAB BLOOD ORDERABLES Final R esult [facility] ([facility] LAB [address] [place] [address], documented in this encounter Visit Diagnoses Diagnosis Schizoaffective disorder, bipolar type (CMS/HCC) Schizoaffective disorder, unspecified condition documented in this encounter Additional Health Concerns Infection Onset Date Last Indicated Resolved Time Respiratory Rule-Out 10/21/2024 10/21/2024 024 12:40 PM EST Influenza 10/21/2024 10/21/2024 11/14/2024 7:05 PM EST documented as of this encounter Care Teams Newspaper Press Operator Apprentice Relationship Specialty Start Date End Date Josh Pretty MD [address] [place] [address] PCP - General Family Medicine 09/20/24 documented as of this encounter
--- OUTSIDE RECORDS SUMMARY | 2024-12-20 17:55 | XMS_ITS | Encounter Summary ---
Author Organization [employer] Address [address] [place] [address] Care Team Providers Care Ocean Forwarder Name Role Phone Josh Pretty MD Primary Care Provider [phone] Encounter Details Date Type Department Care Team (Late st Contact Info) Description 09/10/2024 Lab Requisition [facility] - Main Lab [address] [place] [address] Josh Pretty MD [address] [place] [address] Urinary tract infection, site not specified Social History Tobacco Use Types Packs/Day Years [...] Associated Diagnosis Comments URINALYSIS WITH REFLEX MICROSCOPIC AND CULTURE Routine 09/09/2024 12:00 AM EST Urinary tract infection, site not specified JEREZ URINE CULTURE TUBE Routine 09/09/2024 12:00 AM EST Urinary tract infection, site not specified URINALYSIS WITH REFLEX MICROSCOPIC AND CULTURE Routine 09/09/2024 12:00 AM EST Urinary tract infection, site not specified documented in this encounter Results * Urinalysis with reflex microscopic and culture (09/09/2024 12:00 AM EST) Specific [place] Urine 1.021 1.003 - 1.030 LAB URINALYSIS - AUTOMATED METHOD 09/10/2024 8:16 AM EST [facility] pH, Urine 5.5 5.0 - 8.0 pH LAB URINALYSIS - AUTOMATED METHOD 09/10/2024 8:16 AM [facility] LAB Leukocytes, Urine Negative Negative LAB URINALYSIS - AUTOMATED METHOD 09/10/2024 8:16 AM [facility] LAB Nitrite, Urine Negative Negative LAB URINALYSIS - AUTOMATED METHOD 09/10/2024 8:16 AM [facility] LAB Protein, Urine Negative <=Trace mg/dL LAB URINALYSIS - AUTOMATED METHOD 09/10/2024 8:16 AM [facility] LAB Glucose, Urine Negative Negative mg/dL LAB URINALYSIS - AUTOMATED METHOD 09/10/2024 8:16 AM [facility] LAB Ketones, Urine Negative Negative mg/dL LAB URINALYSIS - AUTOMATED METHOD 09/10/2024 8:16 AM [facility] LAB Urobilinogen, Urine 1.0 0.2 - 1.0 mg/dL LAB URINALYSIS - AUTOMATED METHOD 09/10/2024 8:16 AM [facility] LAB Bilirubin, Urine Negative Negative LAB URINALYSIS - AUTOMATED METHOD 09/10/2024 8:16 AM [facility] LAB Blood, Urine Negative Negative LAB URINALYSIS - AUTOMATED METHOD 09/10/2024 8:16 AM [facility] LAB Urine Urine specimen obtained by clean catch procedure / Unknown 09/09/2024 09/10/2024 7:42 AM EST us Josh Pretty MD LAB URINE ORDERABLES Final R esult [facility] LAB [address] [place] [address], * Jerez urine culture tube (09/09/2024 12:00 AM EST) Extra Tube Hold for add-ons. 09/10/2024 9:01 AM EST [facility] Comment:Auto resulted. Urine Urine specimen obtained by clean catch procedure / Unknown 09/09/2024 09/10/2024 7:42 AM EST us Josh Pretty MD LAB URINE ORDERABLES Final R esult [facility] [address] [place] [address], documented in this encounter Visit Diagnoses Diagnosis Urinary tract infection, site not specified documented in this encounter Additional Health Concerns Infection Onset Date Last Indicated Resolved Time Respiratory Rule-Out 10/21/2024 10/21/2024 024 12:40 PM EST Influenza 10/21/2024 10/21/2024 11/14/2024 7:05 PM EST documented as of this encounter Care Teams Ocean Forwarder Relationship Specialty Start Date End Date Josh Pretty MD [address] [place] [address] PCP - General Family Medicine 09/20/24 documented as of this encounter
--- OUTSIDE RECORDS SUMMARY | 2024-12-20 17:55 | XMS_ITS | Encounter Summary ---
Author Organization [employer] [facility] Address [address] [place] [address] Care Team Providers Care Orthodontic Assistant Name Role Phone Josh Pretty MD Primary Care Provider [phone]- [phone] Encounter Details Date Type Department Care Team (Late st Contact Info) Description 09/09/2024 Lab Requisition [facility] Lab [address] [facility] [address] Josh Pretty MD [address] [place] [address] Urinary tract infection, site not [...] Associated Diagnosis Comments COMPLETE BLOOD COUNT Routine 09/09/2024 6:08 AM EST Urinary tract infection, site not specified BASIC METABOLIC PANEL Routine 09/09/2024 6:08 AM EST Urinary tract infection, site not specified documented in this encounter Results * (ABNORMAL) Basic metabolic panel (09/09/2024 6:08 AM EST) Sodium 142 133 - 145 mmol/L LAB CHEMISTRY METHOD 09/09/2024 9:[address] [facility] Potassium 3.7 3.5 - 5.5 mmol/L LAB CHEMISTRY METHOD 09/09/2024 9:02 AM [facility] LAB Chloride 111(H) 96 - 110 mmol/L LAB CHEMISTRY METHOD 09/09/2024 9:02 AM [facility] LAB CO2 27 21 - 32 mmol/L LAB CHEMISTRY METHOD 09/09/2024 9:02 AM [facility] LAB Anion Gap 4 3 - 11 LAB CHEMISTRY METHOD 09/09/2024 9:02 AM [facility] LAB Glucose 93 70 - 100 mg/dL LAB CHEMISTRY METHOD 09/09/2024 9:02 AM [facility] LAB BUN 20 5 - 25 mg/dL LAB CHEMISTRY METHOD 09/09/2024 9:02 AM [facility] LAB Creatinine 1.23 0.70 - 1.30 mg/dL LAB CHEMISTRY METHOD 09/09/2024 9:02 AM [facility] LAB eGFR 62 >=60 mL/min/1. 73m2 LAB CHEMISTRY METHOD 09/09/2024 9:02 AM [facility] LAB Comment:Calculation based on the??Chronic Kidney Disease Epidemiology Collaboration (CKD-EPI) equation refit??without adjustment for race. BUN/Creatinine Ratio 16.3 LAB CHEMISTRY METHOD 09/09/2024 9:02 AM [facility] LAB Calcium 9.0 8.5 - 10.5 mg/dL LAB CHEMISTRY METHOD 09/09/2024 9:02 AM [facility] LAB Blood Venous blood specimen / Unknown 09/09/2024 6:08 AM EST 09/09/2024 7:56 AM EST us Josh Pretty MD LAB BLOOD ORDERABLES Final R esult [facility] [address] [place] [address], * (ABNORMAL) Complete blood count (09/09/2024 6:08 AM EST) WBC 5.0 4.8 - 10.8 K/mcL LAB HEMETOLOGY METHOD 09/09/2024 8:39 AM [facility] LAB RBC 4.10(L) 4.50 - 5.50 M/mcL LAB HEMETOLOGY METHOD 09/09/2024 8:39 AM [facility] LAB Hemoglobin 11.6(L) 13.5 - 17.5 g/dL LAB HEMETOLOGY METHOD 09/09/2024 8:39 AM [facility] LAB Hematocrit 37.5(L) 42.0 - 54.0 % LAB HEMETOLOGY METHOD 09/09/2024 8:39 AM [facility] LAB MCV 90.8 79.0 - 98.0 FL LAB HEMETOLOGY METHOD 09/09/2024 8:39 AM [facility] LAB MCH 28.1 27.0 - 32.0 pcg LAB HEMETOLOGY METHOD 09/09/2024 8:39 AM [facility] LAB MCHC 30.9(L) 32.0 - 37.0 g/dL LAB HEMETOLOGY METHOD 09/09/2024 8:39 AM [facility] LAB RDW 15.0 11.0 - 15.0 % LAB HEMETOLOGY METHOD 09/09/2024 8:39 AM [facility] LAB Platelets 152 130 - 400 K/mcL LAB HEMETOLOGY METHOD 09/09/2024 8:39 AM [facility] LAB MPV 11.9(H) 7.0 - 11.0 FL LAB HEMETOLOGY METHOD 09/09/2024 8:39 AM [facility] LAB NRBC 0.0 <1.0 % LAB HEMETOLOGY METHOD 09/09/2024 8:39 AM [facility] LAB NRBC Absolute 0.00 <0.10 K/mcL LAB HEMETOLOGY METHOD 09/09/2024 8:39 AM [facility] LAB Blood Venous blood specimen / Unknown 09/09/2024 6:08 AM EST 09/09/2024 7:56 AM EST us Josh Pretty MD LAB BLOOD ORDERABLES Final R esult [facility] [address] [place] [address], documented in this encounter Visit Diagnoses Diagnosis Urinary tract infection, site not specified documented in this encounter Additional Health Concerns Infection Onset Date Last Indicated Resolved Time Respiratory Rule-Out 10/21/2024 10/21/2024 024 12:40 PM EST Influenza 10/21/2024 10/21/2024 11/14/2024 7:05 PM EST documented as of this encounter Care Teams Orthodontic Assistant Relationship Specialty Start Date End Date Josh Pretty MD [address] [place] [address] PCP - General Family Medicine 09/20/24 documented as of this encounter
--- OUTSIDE RECORDS SUMMARY | 2024-12-20 17:55 | XMS_ITS | Encounter Summary ---
Author Organization [employer] Address [address] [place] [address] Care Team Providers Care Digital Marketing Analyst Name Role Phone Josh Pretty MD Primary Care Provider [phone] Encounter Details Date Type Department Care Team (Late st Contact Info) Description 11/25/2024 Lab Requisition [facility] - Main Lab [address] [place] [address] Josh Pretty MD [address] [place] [address] Altered mental status, unspecified; Urinary tract infection, site not specified Social [...] Diagnosis Comments URINALYSIS WITH REFLEX MICROSCOPIC Routine 11/25/2024 6:30 AM EST Altered mental status, unspecified Urinary tract infection, site not specified URINALYSIS WITH REFLEX MICROSCOPIC Routine 11/25/2024 6:30 AM EST Altered mental status, unspecified Urinary tract infection, site not specified CULTURE URINE Routine 11/25/2024 6:30 AM EST Altered mental status, unspecified Urinary tract infection, site not specified documented in this encounter Results * Urinalysis with reflex microscopic (11/25/2024 6:30 AM EST) Specific [place] Urine 1.007 1.003 - 1.030 LAB URINALYSIS - AUTOMATED METHOD 11/25/2024 10:44 AM EST [facility] LAB pH, Urine 7.0 5.0 - 8.0 pH LAB URINALYSIS - AUTOMATED METHOD 11/25/2024 10:44 AM [facility] LAB Leukocytes, Urine Negative Negative LAB URINALYSIS - AUTOMATED METHOD 11/25/2024 10:44 AM [facility] LAB Nitrite, Urine Negative Negative LAB URINALYSIS - AUTOMATED METHOD 11/25/2024 10:44 AM [facility] Protein, Urine Negative <=Trace mg/dL LAB URINALYSIS - AUTOMATED METHOD 11/25/2024 10:44 AM [facility] Glucose, Urine Negative Negative mg/dL LAB URINALYSIS - AUTOMATED METHOD 11/25/2024 10:44 AM [facility] Ketones, Urine Negative Negative mg/dL LAB URINALYSIS - AUTOMATED METHOD 11/25/2024 10:44 AM [facility] Urobilinogen, Urine 0.2 0.2 - 1.0 mg/dL LAB URINALYSIS - AUTOMATED METHOD 11/25/2024 10:44 AM [facility] Bilirubin, Urine Negative Negative LAB URINALYSIS - AUTOMATED METHOD 11/25/2024 10:44 AM [facility] Blood, Urine Negative Negative LAB URINALYSIS - AUTOMATED METHOD 11/25/2024 10:44 AM [facility] Urine Urine specimen obtained by clean catch procedure / Unknown Non-blood Collection / Unknown 11/25/2024 6:30 AM EST 11/25/2024 10:11 AM EST us Josh Pretty MD LAB URINE ORDERABLES Final R esult [facility] LAB [address] [place] [address], * Culture urine (11/25/2024 6:30 AM EST) Culture, Urine <10,000 CFU/mL gram negative bacilli, insignificant count, no further workup 11/26/2024 11:05 AM EST [facility] Urine Urine specimen obtained by clean catch procedure / Unknown Non-blood Collection / Unknown 11/25/2024 6:30 AM EST 11/25/2024 10:11 AM EST Josh Pretty MD LAB MICROBIOLOGY - GENERAL O RDERABLES Final Result [facility] [address] [place] [address], documented in this encounter Visit Diagnoses Diagnosis Altered mental status, unspecified Urinary tract infection, site not specified documented in this encounter Care Teams Digital Marketing Analyst Relationship Specialty Start Date End Date Josh Pretty MD [address] [place] [address] PCP - General Family Medicine 09/20/24 documented as of this encounter
--- OUTSIDE RECORDS SUMMARY | 2024-12-20 17:56 | XMS_ITS | Encounter Summary ---
Author Organization [facility] Address [address] [place] [address] Care Team Providers Care Ssis Architect Name Role Phone Josh Pretty MD Primary Care Provider Encounter Details Date Type Department Care Team (Latest Contact Info) Description 10/24/2024 Lab Requisition [facility] Lab [address] [place] [address] Josh Pretty MD [facility] [place] [address] Influenza due to identified novel influenza A virus with gastrointestinal manifestations Social History Tobacco Use Types Packs/Day Years [...] Associated Diagnosis Comments COMPLETE BLOOD COUNT Routine 10/24/2024 5:00 AM EST Influenza due to identified novel influenza A virus with gastrointestinal manifestations BASIC METABOLIC PANEL Routine 10/24/2024 5:00 AM EST Influenza due to identified novel influenza A virus with gastrointestinal manifestations documented in this encounter Results * Basic metabolic panel (10/24/2024 5:00 AM EST) Sodium 141 133 - 145 mmol/L LAB CHEMISTRY METHOD 10/24/2024 2:19 PM [facility] Potassium 3.7 3.5 - 5.5 mmol/L LAB CHEMISTRY METHOD 10/24/2024 2:19 PM [facility] Chloride 109 96 - 110 mmol/L LAB CHEMISTRY METHOD 10/24/2024 2:19 PM [facility] CO2 24 21 - 32 mmol/L LAB CHEMISTRY METHOD 10/24/2024 2:19 PM [facility] Anion Gap 8 3 - 11 LAB CHEMISTRY METHOD 10/24/2024 2:19 PM [facility] Glucose 79 70 - 100 mg/dL LAB CHEMISTRY METHOD 10/24/2024 2:19 PM [facility] BUN 17 5 - 25 mg/dL LAB CHEMISTRY METHOD 10/24/2024 2:19 PM [facility] Creatinine 1.05 0.70 - 1.30 mg/dL LAB CHEMISTRY METHOD 10/24/2024 2:19 PM [facility] eGFR 75 >=60 mL/min/1. 73m2 LAB CHEMISTRY METHOD 10/24/2024 2:19 PM [facility] Comment:Calculation based on the??Chronic Kidney Disease Epidemiology Collaboration (CKD-EPI) equation refit??without adjustment for race. BUN/Creatinine Ratio 16.2 LAB CHEMISTRY METHOD 10/24/2024 2:19 PM [facility] Calcium 8.6 8.5 - 10.5 mg/dL LAB CHEMISTRY METHOD 10/24/2024 2:19 PM [facility] Blood Venous blood specimen / Unknown Venipuncture / Unknown 10/24/2024 5:00 AM EST 10/24/2024 11:04 AM EST us Josh Pretty MD LAB BLOOD ORDERABLES Final R esult [facility] LAB [address] [place] [address], * (ABNORMAL) Complete blood count (10/24/2024 5:00 AM EST) WBC 5.3 4.8 - 10.8 K/mcL LAB HEMETOLOGY METHOD 10/24/2024 12:26 PM [facility] RBC 3.90(L) 4.50 - 5.50 M/mcL LAB HEMETOLOGY METHOD 10/24/2024 12:26 PM [facility] Hemoglobin 11.0(L) 13.5 - 17.5 g/dL LAB HEMETOLOGY METHOD 10/24/2024 12:26 PM [facility] Hematocrit 36.0(L) 42.0 - 54.0 % LAB HEMETOLOGY METHOD 10/24/2024 12:26 PM [facility] MCV 91.4 79.0 - 98.0 FL LAB HEMETOLOGY METHOD 10/24/2024 12:26 PM [facility] MCH 27.9 27.0 - 32.0 pcg LAB HEMETOLOGY METHOD 10/24/2024 12:26 PM [facility] MCHC 30.6(L) 32.0 - 37.0 g/dL LAB HEMETOLOGY METHOD 10/24/2024 12:26 PM [facility] RDW 13.9 11.0 - 15.0 % LAB HEMETOLOGY METHOD 10/24/2024 12:26 PM [facility] Platelets 197 130 - 400 K/mcL LAB HEMETOLOGY METHOD 10/24/2024 12:26 PM [facility] MPV 11.7(H) 7.0 - 11.0 FL LAB HEMETOLOGY METHOD 10/24/2024 12:26 PM [facility] NRBC 0.0 <1.0 % LAB HEMETOLOGY METHOD 10/24/2024 12:26 PM [facility] NRBC Absolute 0.00 <0.10 K/mcL LAB HEMETOLOGY METHOD 10/24/2024 12:26 PM [facility] Blood Venous blood specimen / Unknown Venipuncture / Unknown 10/24/2024 5:00 AM EST 10/24/2024 11:04 AM EST us Josh Pretty MD LAB BLOOD ORDERABLES Final R esult [facility] ([facility]) [facility] LAB [address] [place] [address], documented in this encounter Visit Diagnoses Diagnosis Influenza due to identified novel influenza A virus with gastrointestinal manifestations documented in this encounter Additional Health Concerns Infection Onset Date Last Indicated Resolved Time Influenza 10/21/2024 10/21/2024 11/14/2024 7:05 PM EST documented as of this encounter Care Teams Ssis Architect Relationship Specialty Start Date End Date Josh Pretty MD [address] [place] [address] PCP - General Family Medicine 09/20/24 documented as of this encounter
--- OUTSIDE RECORDS SUMMARY | 2024-12-20 17:56 | XMS_ITS | Encounter Summary ---
Author Organization [facility] Address [address] [place] [address] Care Team Providers Care Case Work Aide Name Role Phone Josh Pretty MD Primary Care Provider Encounter Details Date Type Department Care Team (Late st Contact Info) Description 11/02/2024 Lab Requisition [facility] Lab [address] [place] [address] Josh Pretty MD [address] [place] [address] Dementia in other diseases classified elsewhere, unspecified severity, with mood disturbance (CMS/HCC) Social History Tobacco Use Types Packs/Day [...] Date/Time Associated Diagnosis Comments LITHIUM LEVEL Routine 11/02/2024 9:11 AM EST Dementia in other diseases classified elsewhere, unspecified severity, with mood disturbance (CMS/HCC) documented in this encounter Results * [place] level (11/02/2024 9:11 AM EST) [place] Level 0.8 0.6 - 1.2 mEq/L LAB CHEMISTRY METHOD 11/02/2024 12:02 PM EST [facility] ([email or web address] Blood Venous blood specimen / Unknown Venipuncture / Unknown 11/02/2024 9:11 AM EST 11/02/2024 10:26 AM EST Josh Pretty MD LAB BLOOD ORDERABLES Final R esult [email or web address] [address] [place] [address], documented in this encounter Visit Diagnoses Diagnosis Dementia in other diseases classified elsewhere, unspecified severity, with mood disturbance (CMS/HCC) documented in this encounter Additional Health Concerns Infection Onset Date Last Indicated Resolved Time Influenza 10/21/2024 10/21/2024 11/14/2024 7:05 PM EST documented as of this encounter Care Teams Case Work Aide Relationship Specialty Start Date End Date Josh Pretty MD [address] [place] [address] PCP - General Family Medicine 09/20/24 documented as of this encounter
--- OUTSIDE RECORDS SUMMARY | 2024-12-20 17:56 | XMS_ITS | Encounter Summary ---
Author Organization [facility] Address [address] [place] [address] Care Team Providers Care Buildings And Grounds Superintendent Name Role Phone Josh Pretty MD Primary Care Provider Encounter Details Date Type Department Care Team (Latest Contact Info) Description 11/02/2024 Lab Requisition [facility] - [facility] Lab [address] [facility] [place] [address] Josh Pretty MD [address] [place] [address] Schizoaffective disorder, unspecified (CMS/HCC) Social History Tobacco Use Types Packs/Day Years Used Date Smoking Tobacco: Never Assessed Sex and Gender Information Value Date Recorded Sex Assigned at Not on file Legal Sex Male 3:40 PM EDT Gender Identity Not on file Sexual Orientation Not on file documented as of this encounter Plan of Treatment Not on file documented as of this encounter Visit Diagnoses Diagnosis Schizoaffective disorder, unspecified (CMS/HCC) documented in this encounter Additional Health Concerns Infection Onset Date Last Indicated Resolved Time Influenza 10/21/2024 10/21/2024 11/14/2024 7:05 PM EST documented as of this encounter Care Teams Buildings And Grounds Superintendent Relationship Specialty Start Date End Date Josh Pretty MD [address] [place] [address] PCP - General Family Medicine 09/20/24 documented as of this encounter
--- OUTSIDE RECORDS SUMMARY | 2024-12-20 17:56 | XMS_ITS | Encounter Summary ---
Author Organization [facility] Address [address] [place] [address] Care Team Providers Care Concrete Hopper Operator Name Role Phone Josh Pretty MD Primary Care Provider [phone] Encounter Details Date Type Department Care Team (Late st Contact Info) Description 12/20/2024 Lab Requisition [facility] Lab [address] [facility] [place] [address] Josh Pretty MD [address] [place] [address] Anemia, unspecified; Chronic kidney disease, unspecified Social History Tobacco Use Types Packs/Day Years [...] Associated Diagnosis Comments COMPLETE BLOOD COUNT Routine 12/20/2024 5:10 AM EST Anemia, unspecified Chronic kidney disease, unspecified BASIC METABOLIC PANEL Routine 12/20/2024 5:10 AM EST Anemia, unspecified Chronic kidney disease, unspecified documented in this encounter Results * (ABNORMAL) Basic metabolic panel (12/20/2024 5:10 AM EST) Sodium 145 133 - 145 mmol/L LAB CHEMISTRY METHOD 12/20/2024 1:24 PM EST [facility] Potassium 3.8 3.5 - 5.5 mmol/L LAB CHEMISTRY METHOD 12/20/2024 1:24 PM EST [facility] Chloride 115(H) 96 - 110 mmol/L LAB CHEMISTRY METHOD 12/20/2024 1:24 PM [facility] CO2 23 21 - 32 mmol/L LAB CHEMISTRY METHOD 12/20/2024 1:24 PM [facility] Anion Gap 7 3 - 11 LAB CHEMISTRY METHOD 12/20/2024 1:24 PM [facility] Glucose 81 70 - 100 mg/dL LAB CHEMISTRY METHOD 12/20/2024 1:24 PM [facility] BUN 37(H) 5 - 25 mg/dL LAB CHEMISTRY METHOD 12/20/2024 1:24 PM [facility] LAB Comment:Results verified by repeat testing Creatinine 1.26 0.70 - 1.30 mg/dL LAB CHEMISTRY METHOD 12/20/2024 1:24 PM [facility] LAB eGFR 61 >=60 mL/min/1. 73m2 LAB CHEMISTRY METHOD 12/20/2024 1:24 PM [facility] LAB Comment:Calculation based on the??Chronic Kidney Disease Epidemiology Collaboration (CKD-EPI) equation refit??without adjustment for race. BUN/Creatinine Ratio 29.4 LAB CHEMISTRY METHOD 12/20/2024 1:24 PM [facility] Calcium 9.6 8.5 - 10.5 mg/dL LAB CHEMISTRY METHOD 12/20/2024 1:24 PM [facility] Blood Venous blood specimen / Unknown Venipuncture / Unknown 12/20/2024 5:10 AM EST 12/20/2024 10:55 AM EST us Josh Pretty MD LAB BLOOD ORDERABLES Final R esult [facility] LAB [address] [place] [address], * (ABNORMAL) Complete blood count (12/20/2024 5:10 AM EST) WBC 11.2(H) 4.8 - 10.8 K/[facility] LAB HEMETOLOGY METHOD 12/20/2024 12:07 PM [facility] RBC 4.40(L) 4.50 - 5.50 M/mcL LAB HEMETOLOGY METHOD 12/20/2024 12:07 PM [facility] Hemoglobin 11.8(L) 13.5 - 17.5 g/dL LAB HEMETOLOGY METHOD 12/20/2024 12:07 PM [facility] Hematocrit 39.5(L) 42.0 - 54.0 % LAB HEMETOLOGY METHOD 12/20/2024 12:07 PM [facility] MCV 89.2 79.0 - 98.0 FL LAB HEMETOLOGY METHOD 12/20/2024 12:07 PM [facility] MCH 26.6(L) 27.0 - 32.0 pcg LAB HEMETOLOGY METHOD 12/20/2024 12:07 PM [facility] MCHC 29.9(L) 32.0 - 37.0 g/dL LAB HEMETOLOGY METHOD 12/20/2024 12:07 PM [facility] RDW 15.4(H) 11.0 - 15.0 % LAB HEMETOLOGY METHOD 12/20/2024 12:07 PM [facility] Platelets 222 130 - 400 K/mcL LAB HEMETOLOGY METHOD 12/20/2024 12:07 PM [facility] MPV 11.7(H) 7.0 - 11.0 FL LAB HEMETOLOGY METHOD 12/20/2024 12:07 PM [facility] NRBC 0.0 <1.0 % LAB HEMETOLOGY METHOD 12/20/2024 12:07 PM [facility] NRBC Absolute 0.00 <0.10 K/mcL LAB HEMETOLOGY METHOD 12/20/2024 12:07 PM [facility] Blood Venous blood specimen / Unknown Venipuncture / Unknown 12/20/2024 5:10 AM EST 12/20/2024 10:55 AM EST us Josh Pretty MD LAB BLOOD ORDERABLES Final R esult [facility] ([facility]) [facility] [address] [place] [address], documented in this encounter Visit Diagnoses Diagnosis Anemia, unspecified Chronic kidney disease, unspecified documented in this encounter Care Teams Concrete Hopper Operator Relationship Specialty Start Date End Date Josh Pretty MD [address] [place] [address] PCP - General Family Medicine 09/20/24 documented as of this encounter
--- OUTSIDE RECORDS SUMMARY | 2024-12-20 17:56 | XMS_ITS | Clinical Summary ---
Author Organization [address] Address [address] [place] [address] Phone Care Team Providers Care Industrial Workers Name Role Phone Josh Pretty MD Primary Care Provider Encounters Date Type Department Care Team Description 12/20/2024 Lab Requisition [facility] Lab [address] [place] [phone] Josh Pretty MD Anemia, unspecified; Chronic kidney disease, unspecified 11/25/2024 Lab Requisition [facility] Lab [address] [place] [address] Josh Pretty MD Altered mental status, unspecified; Urinary tract infection, site not specified 11/25/2024 Lab Requisition [facility] Lab [address] [place] [address] Josh Pretty MD Urinary tract infection, site not specified; Weakness 11/03/2024 Lab Requisition [facility] - Main Lab [address] [place] [address] Josh Pretty MD Schizoaffective disorder, unspecified ([facility]) 11/02/[address] [facility] Main Lab [address] [place] [address] Josh Pretty MD Schizoaffective disorder, unspecified ([facility]) 11/02/[address] [facility] Main Lab [address] [place] [phone] Josh Pretty MD Dementia in other diseases classified elsewhere, unspecified severity, with mood disturbance ([facility]) 10/24/[address] [facility] Main Lab [address] [place] [address] Josh Pretty MD Influenza due to identified novel influenza A virus with gastrointestinal manifestations 10/21/2024 Lab Requisition [facility] Lab [address] [place] [address] Josh Pretty MD Cough, unspecified 10/05/2024 Lab Requisition [facility] Lab [address] [place] [address] Josh Pretty MD Schizoaffective disorder, bipolar type (CMS/HCC) from Last 3 Months Social History Tobacco Use Types Packs/Day Years Used Date Smoking Tobacco: Never Assessed Sex and Gender Information Value Date Recorded Sex Assigned at Not on file Legal Sex Male 3:40 PM EDT Gender Identity Not on file Sexual Orientation Not on file Plan of Treatment Health Maintenance Due Date Last Done Comments DTaP,Tdap,and Td Vaccines (1 - Tdap) 1971 Pneumococcal Vaccine: 50+ Ye ars (1 of 1 - PCV) 2002 Zoster Vaccines (1 of 2) 2002 COVID-19 Vaccine (2023-2 5 season) 2024 Influenza Vaccine (#1) 2024 Abdominal Aortic Aneurysm (A AA) Screen 08/21/2024 Cholesterol Screening (Lipid Panel) 08/21/2024 Colorectal Cancer Screening: Colonoscopy 08/21/2024 Depression Screening 08/21/2024 Falls Risk Assessment 08/21/2024 Hepatitis C Screening 08/21/2024 Social Influencers of Health Screening 08/21/2024 RSV Immunization Patients 60 + Years Old (1 - 1-dose 75+ series) 2027 HIB Vaccines Aged Out No longer eligi ble based on patient's age to complete this topic HPV Vaccines Aged Out No longer eligi ble based on patient's age to complete this topic Hepatitis A Vaccines Aged Out No long er eligible based on patient's age to complete this topic Hepatitis B Vaccines Aged Out No long er eligible based on patient's age to complete this topic IPV Vaccines Aged Out No longer eligi ble based on patient's age to complete this topic MMR Vaccines Aged Out No longer eligi ble based on patient's age to complete this topic Meningococcal ACWY Vaccine Aged Out N o longer eligible based on patient's age to complete this topic Meningococcal B Vacine Aged Out No lo nger eligible based on patient's age to complete this topic RSV Immunization Patients Un ern[place] 20 months Aged Out No longer eligible b ased on patient's age to complete this topic Varicella Vaccines Aged Out No longer eligible based on patient's age to complete this topic Procedures Procedure Name Priority Date/Time Associated Diagnosis Comments BASIC METABOLIC PANEL Routine 12/20/2024 5:10 AM EST Anemia, unspecified Chronic kidney disease, unspecified COMPLETE BLOOD COUNT Routine 12/20/2024 5:10 AM EST Anemia, unspecified Chronic kidney disease, unspecified URINALYSIS WITH REFLEX MICROSCOPIC Routine 11/25/2024 6:30 AM EST Altered mental status, unspecified Urinary tract infection, site not specified URINALYSIS WITH REFLEX MICROSCOPIC Routine 11/25/2024 6:30 AM EST Altered mental status, unspecified Urinary tract infection, site not specified CULTURE URINE Routine 11/25/2024 6:30 AM EST Altered mental status, unspecified Urinary tract infection, site not specified URINALYSIS WITH REFLEX MICROSCOPIC Routine 11/24/2024 12:00 AM EST Urinary tract infection, site not specified Weakness URINALYSIS WITH REFLEX MICROSCOPIC Routine 11/24/2024 12:00 AM EST Urinary tract infection, site not specified Weakness CULTURE URINE Routine 11/24/2024 12:00 AM EST Urinary tract infection, site not specified Weakness LITHIUM LEVEL Routine 11/04/2024 8:00 AM EST Schizoaffective disorder, unspecified (CMS/HCC) LITHIUM LEVEL Routine 11/02/2024 9:11 AM EST Dementia in other diseases classified elsewhere, unspecified severity, with mood disturbance (CMS/HCC) BASIC METABOLIC PANEL Routine 10/24/2024 5:00 AM EST Influenza due to identified novel influenza A virus with gastrointestinal manifestations COMPLETE BLOOD COUNT Routine 10/24/2024 5:00 AM EST Influenza due to identified novel influenza A virus with gastrointestinal manifestations [id number], RSV, FLU A AND B QUALITATIVE RT-PCR, LOCAL REFERENCE LAB Routine 10/21/2024 7:00 AM EST Cough, unspecified BASIC METABOLIC PANEL Routine 10/05/2024 5:01 AM EST Schizoaffective disorder, bipolar type (CMS/HCC) COMPLETE BLOOD COUNT Routine 10/05/2024 5:01 AM EST Schizoaffective disorder, bipolar type (CMS/HCC) from Last 3 Months Results * (ABNORMAL) Complete blood count (12/20/2024 5:10 AM EST) Only the most recent of3 resultswithin the time period is included. WBC 11.2(H) 4.8 - 10.8 K/mcL LAB HEMETOLOGY METHOD 12/20/2024 12:07 PM [facility] LAB RBC 4.40(L) 4.50 - 5.50 M/mcL LAB HEMETOLOGY METHOD 12/20/2024 12:07 PM [facility] LAB Hemoglobin 11.8(L) 13.5 - 17.5 g/dL LAB HEMETOLOGY METHOD 12/20/2024 12:07 PM [facility] LAB Hematocrit 39.5(L) 42.0 - 54.0 % LAB HEMETOLOGY METHOD 12/20/2024 12:07 PM [facility] LAB MCV 89.2 79.0 - 98.0 FL LAB HEMETOLOGY METHOD 12/20/2024 12:07 PM [facility] LAB MCH 26.6(L) 27.0 - 32.0 pcg LAB HEMETOLOGY METHOD 12/20/2024 12:07 PM [facility] LAB MCHC 29.9(L) 32.0 - 37.0 g/dL LAB HEMETOLOGY METHOD 12/20/2024 12:07 PM [facility] LAB RDW 15.4(H) 11.0 - 15.0 % LAB HEMETOLOGY METHOD 12/20/2024 12:07 PM [facility] LAB Platelets 222 130 - 400 K/mcL LAB HEMETOLOGY METHOD 12/20/2024 12:07 PM [facility] LAB MPV 11.7(H) 7.0 - 11.0 FL LAB HEMETOLOGY METHOD 12/20/2024 12:07 PM [facility] LAB NRBC 0.0 <1.0 % LAB HEMETOLOGY METHOD 12/20/2024 12:07 PM [facility] LAB NRBC Absolute 0.00 <0.10 K/mcL LAB HEMETOLOGY METHOD 12/20/2024 12:07 PM [facility] LAB Blood Venous blood specimen / Unknown Venipuncture / Unknown 12/20/2024 5:10 AM EST 12/20/2024 10:55 AM EST us Josh Pretty MD LAB BLOOD ORDERABLES Final R esult [facility] LAB [address] [place] [address], * (ABNORMAL) Basic metabolic panel (12/20/2024 5:10 AM EST) Only the most recent of3 resultswithin the time period is included. Sodium 145 133 - 145 mmol/L LAB CHEMISTRY METHOD 12/20/2024 1:24 PM [facility] LAB Potassium 3.8 3.5 - 5.5 mmol/L LAB CHEMISTRY METHOD 12/20/2024 1:24 PM [facility] Chloride 115(H) 96 - 110 mmol/L LAB CHEMISTRY METHOD 12/20/2024 1:24 PM [facility] CO2 23 21 - 32 mmol/L LAB CHEMISTRY METHOD 12/20/2024 1:24 PM [facility] Anion Gap 7 3 - 11 LAB CHEMISTRY METHOD 12/20/2024 1:24 PM [facility] Glucose 81 70 - 100 mg/dL LAB CHEMISTRY METHOD 12/20/2024 1:24 PM [facility] BUN 37(H) 5 - 25 mg/dL LAB CHEMISTRY METHOD 12/20/2024 1:24 PM [facility] LAB Comment:Results verified by repeat testing Creatinine 1.26 0.70 - 1.30 mg/dL LAB CHEMISTRY METHOD 12/20/2024 1:24 PM [facility] LAB eGFR 61 >=60 mL/min/1. 73m2 LAB CHEMISTRY METHOD 12/20/2024 1:24 PM [facility] LAB Comment:Calculation based on the??Chronic Kidney Disease Epidemiology Collaboration (CKD-EPI) equation refit??without adjustment for race. BUN/Creatinine Ratio 29.4 LAB CHEMISTRY METHOD 12/20/2024 1:24 PM [facility] Calcium 9.6 8.5 - 10.5 mg/dL LAB CHEMISTRY METHOD 12/20/2024 1:24 PM [facility] Blood Venous blood specimen / Unknown Venipuncture / Unknown 12/20/2024 5:10 AM EST 12/20/2024 10:55 AM EST us oJsh Pretty MD LAB BLOOD ORDERABLES Final R esult [facility] LAB [address] [place] [address], * Urinalysis with reflex microscopic (11/25/2024 6:30 AM EST) Only the most recent of2 resultswithin the time period is included. Specific [place] Urine 1.007 1.003 - 1.030 LAB URINALYSIS - AUTOMATED METHOD 11/25/2024 10:44 AM [facility] LAB pH, Urine 7.0 5.0 - [...] MD LAB URINE ORDERABLES Final R esult [facility] LAB [address] [place] [address], [place] [phone] * Culture urine (11/25/2024 6:30 AM EST) Only the most recent of2 resultswithin the time period is included. Pathologist [facility] Culture, Urine <10,000 CFU/mL gram negative bacilli, insignificant count, no further workup 11/26/2024 11:05 AM EST [facility] LAB Urine Urine specimen obtained by clean catch procedure / Unknown Non-blood Collection / Unknown 11/25/2024 6:30 AM EST 11/25/2024 10:11 AM EST us Josh Pretty MD LAB MICROBIOLOGY - GENERAL O RDERABLES Final Result Performing Organization Address [facility] Co de Phone Number [facility] LAB [address] [place] [address], * [place] level (11/04/2024 8:00 AM EST) Only the most recent of2 resultswithin the time period is included. [facility] [place] Level 0.6 0.6 - 1.2 mEq/L LAB CHEMISTRY METHOD 11/04/2024 10:49 AM EST [facility] LAB Blood Venous blood specimen / Unknown Venipuncture / Unknown 11/04/2024 8:00 AM EST 11/04/2024 10:07 AM EST us Josh Pretty MD LAB BLOOD ORDERABLES Final R esult Performing Organization Address City/[facility]/ZIP Co de Phone Number [facility] LAB [address] [place] [address], [place] [phone] * (ABNORMAL) [id number], RSV, Influenza A and B qualitative RT-PCR (10/21/2024 7:00 AM EST) [facility] SARS COV-2 Not Detected Not Detected LAB MOLECULAR DIAGNOSTICS METHOD 10/21/2024 12:40 PM EST [facility] LAB Comment: Disclaimer: The manner in which this information is used to guide patient care is the responsibility of the healthcare provider. Testing was performed using the [employer] m SARS-CoV-2 test. This test has been authorized by FDA under an Emergency Use Authorization (EUA). This test is only authorized for the duration of time the declaration that circumstances exist justifying the authorization of the emergency use of in vitro diagnostic tests for detection of SARS-CoV-2 virus and/or diagnosis of COVID-19 infection under section 564(b)(1) of the Act, 21 U.S.C. 360bbb- 3(b)(1), unless the authorization is terminated or revoked sooner. Fact sheet for Healthcare Providers can be found at: https://www.fda.gov/media/137143/download Fact sheet for Patients can be found at: https://www.fda.gov/media/481817/download Influenza A PCR Detected(A ) Not Detected LAB MOLECULAR DIAGNOSTICS METHOD 10/21/2024 12:40 PM [facility] LAB Influenza B PCR Not Detected Not Detected LAB MOLECULAR DIAGNOSTICS METHOD 10/21/2024 12:40 PM [facility] RSV PCR Not Detected Not Detected LAB MOLECULAR DIAGNOSTICS METHOD 10/21/2024 12:40 PM [facility] LAB Swab Nasopharyngeal structure / Unknown 10/21/2024 7:00 AM EST 10/21/2024 9:08 AM EST us Josh Pretty MD LAB MICROBIOLOGY - GENERAL O RDERABLES Final Result [facility] LAB [address] [place] [address], [place] [phone] from Last 3 Months Care Teams Industrial Workers Relationship Specialty Start Date End Date Josh Pretty MD [address] [place] [address] PCP - General Family Medicine 09/20/24
--- OUTSIDE RECORDS SUMMARY | 2024-12-20 17:56 | XMS_ITS | Encounter Summary ---
Author Organization [employer] Address [address] [place] [address] Care Team Providers Care Preventive Medicine Physician Name Role Phone Josh Pretty MD Primary Care Provider [phone] Encounter Details Date Type Department Care Team (Late st Contact Info) Description 10/21/2024 Lab Requisition [facility] - Main Lab [address] [place] [address] Josh Pretty MD [address] [place] [address] Cough, unspecified Social History Tobacco Use Types Packs/Day [...] Procedure Name Priority Date/Time Associated Diagnosis Comments [id number], RSV, FLU A AND B QUALITATIVE RT-PCR, LOCAL REFERENCE LAB Routine 10/21/2024 7:00 AM EST Cough, unspecified documented in this encounter Results * (ABNORMAL) [id number], RSV, Influenza A and B qualitative RT-PCR (10/21/2024 7:00 AM EST) SARS COV-2 Not Detected Not Detected LAB MOLECULAR DIAGNOSTICS METHOD 10/21/2024 12:[address] [facility] LAB Comment: Disclaimer: The manner in which this information is used to guide patient care is the responsibility of the healthcare provider. Testing was performed using the [employer] m SARS-CoV-2 test. This test has been [...] for Healthcare Providers can be found at: https://www.fda.gov/media/271437/download Fact sheet for Patients can be found at: https://www.fda.gov/media/761841/download Influenza A PCR Detected(A ) Not Detected LAB MOLECULAR DIAGNOSTICS METHOD 10/21/2024 12:40 PM EST [facility] LAB Influenza B PCR Not Detected Not Detected LAB MOLECULAR DIAGNOSTICS METHOD 10/21/2024 12:40 PM EST [facility] RSV PCR Not Detected Not Detected LAB MOLECULAR DIAGNOSTICS METHOD 10/21/2024 12:40 PM EST [facility] LAB Swab Nasopharyngeal structure / Unknown 10/21/2024 7:00 AM EST 10/21/2024 9:08 AM EST Josh Pretty MD LAB MICROBIOLOGY - GENERAL O RDERABLES Final Result [facility] LAB [address] [place] [address], documented in this encounter Visit Diagnoses Diagnosis Cough, unspecified documented in this encounter Additional Health Concerns Infection Onset Date Last Indicated Resolved Time Respiratory Rule-Out 10/21/2024 10/21/2024 024 12:40 PM EST Influenza 10/21/2024 10/21/2024 11/14/2024 7:05 PM EST documented as of this encounter Care Teams Preventive Medicine Physician Relationship Specialty Start Date End Date Johs Pretty MD [address] [place] [address] PCP - General Family Medicine 09/20/24 documented as of this encounter
[2024-12-20] MEDS: Enoxaparin Sodium 40 MG/0.4 ML SYRINGE SUBCUT (18:18)
[2024-12-21] MEDS: OLANZapine 10 MG VIAL 5 MG IM (02:04)
[2024-12-21] MEDS: 0.9 % Sodium Chloride Flush 3 ML SYRINGE IVFLUSH ×2 (02:06→09:25)
--- NOTE | 2024-12-21 02:08 | PC.NURSE ---
pt admitted to the floor and very drowsy and uncooperative, therefore hs meds were held. around 0100 pt agitated, pulling at IV and oxygen, pt uncooperative with staff and unable to follow directions. tiger text to Dr. Wong and 5mg IM zyprexa ordered and administered at 0204. will continue to monitor.
--- NOTE | 2024-12-21 02:11 | HO.SKINPHOTO ---
Location: right buttock Category: pressure Stage: II Length: Width: Depth: cm Location: Category: Stage: Length: Width: Depth: cm Location: Category: Stage: Length: Width: Depth: cm Location: Category: Stage: Length: Width: Depth: cm Location: Category: Stage: Length: Width: Depth: cm Location: Category: Stage: Length: Width: Depth: cm
[2024-12-21 03:33] VITALS: BP 101/54; PULSE 74; RESP 18; TEMP 36.6; O2SAT 94
[2024-12-21] MEDS: Levothyroxine Sodium 88 MCG TABLET PO (05:43)
[2024-12-21] MEDS: Omeprazole 20 MG CAPSULE.DR PO (05:43)
[2024-12-21 06:20] LABS: Alanine Aminotransferase 26 U/L (0-40); Albumin Level 3.1 g/dL (3.5-5.0); Alkaline Phosphatase 54 U/L (39-117); Anion Gap 10 (12-20); Aspartate Amino Transferase 37 U/L (5-37); Bilirubin Total 0.3 mg/dL (0.0-1.0); Blood Urea Nitrogen 32 mg/dL (9-16); Carbon Dioxide 23 mmol/L (22-29); Chloride 119 mmol/L (96-108); Creatinine Clr Calc Pharmacy 95.6; Estimated Glomerular Filt Rate > 60; Glucose Random 88 mg/dL (60-115); Potassium 3.8 mmol/L (3.3-5.1); Sodium 148 mmol/L (135-145); Total Protein 6.8 g/dL (6.5-8.0)
[2024-12-21 07:19] VITALS: BP 133/79; PULSE 81; RESP 18; TEMP 36.3; O2SAT 93
[2024-12-21] MEDS: allopurinoL 100 MG TABLET PO (09:03)
[2024-12-21] MEDS: Atorvastatin Calcium 80 MG TABLET PO (09:03)
[2024-12-21] MEDS: Multivitamin TABLET 1 TAB PO (09:04)
[2024-12-21] MEDS: HaloperidoL 5 MG TABLET PO ×2 (09:04→20:13)
[2024-12-21] MEDS: guaiFENesin LA 600 MG TAB.ER.12H PO ×2 (09:04→20:13)
[2024-12-21] MEDS: Aspirin 81 MG TAB.CHEW PO (09:04)
[2024-12-21] MEDS: Acetaminophen 325 MG TABLET 650 MG PO ×3 (09:04→20:13)
[2024-12-21] MEDS: OLANZapine 5 MG TABLET PO (09:04)
--- NOTE | 2024-12-21 09:13 | P.PNIM_ITS ---
Subjective Subjective Date of Service: 12/21/24 Interval History: F/u PNA doing better still on O2 Physical Exam 2 Vital Signs: Vital Signs: Selected Entries 12/21/24 07:19 Temperature 97.4 F Pulse Rate 81 Respiratory Rate 18 Blood Pressure 133/79 Pulse Oximetry 93 Oxygen Delivery Me thod Nasal Cannula Const: Other: General: Alert , no acute distress Resp: CTA bilateral CVS: S1,S2,RRR GI: +BS, NT, no distention Skin: No rash Neuro: motor grossly intact Psych: appropriate affect Objective Data Active Medications Acetaminophen (Acetaminophen 325 Mg Tablet) 650 mg PO Q6H PRN PRN Reason: Pain, Mild 1-3,fever,headache Acetaminophen (Acetaminophen 325 Mg Tablet) 650 mg PO TID [facility] Last Admin: 12/22/24 14:50 Dose: 650 mg Documented By: FIDENCIO Al Hydroxide/Mg Hydroxide (Magnesium Hydrox/Alum Hydrox 30 Ml Oral.Susp) 30 ml PO Q4H PRN PRN Reason: Heartburn Al Hydroxide/Mg Hydroxide (Magnesium Hydrox/Alum Hydrox 30 Ml Oral.Susp) 10 ml PO Q6H PRN PRN Reason: GI UPSET Albuterol/Ipratropium (Albuterol/Iprat 2.5/0.5mg 3 Ml Ampul.Neb) 3 ml INHALE RQID [facility] Last Admin: 12/22/24 15:24 Dose: 3 ml Documented By: NIKHIL Allopurinol (Allopurinol 100 Mg Tablet) 100 mg PO DAILY [facility] Last Admin: 12/22/24 09:45 Dose: 100 mg Documented By: FIDENCIO Artificial Tears (Artificial Tears 15 Ml Drops) 1 drop EYE-BOTH Q8H PRN PRN Reason: Dry Eyes Aspirin (Aspirin 81 Mg Tab.Chew) 81 mg PO DAILY [facility] Last Admin: 12/22/24 09:45 Dose: 81 mg Documented By: FIDENCIO Atorvastatin Calcium (Atorvastatin Calcium 80 Mg Tablet) 80 mg PO DAILY [facility] Last Admin: 12/22/24 09:45 Dose: 80 mg Documented By: FIDENCIO Bisacodyl (Bisacodyl 5 Mg Tablet.Dr) 10 mg PO Q24H PRN PRN Reason: Constipation Calcium Carbonate (Calcium Carbonate 750 Mg Tab.Chew) 750 mg PO Q4H PRN PRN Reason: Heartburn Clotrimazole (Clotrimazole 1 % Cream 15 Gm Tube) 1 appl TOPICAL DAILY [facility]; Protocol Last Admin: 12/22/24 14:49 Dose: Not Given Documented By: FIDENCIO Non-Admin Reason: Patient Refused Diphenhydramine HCl (Diphenhydramine Hcl 50 Mg/Ml Vial) 25 mg IM DAILY PRN PRN Reason: Anaphylaxis Enoxaparin Sodium (Enoxaparin Sodium 40 Mg/0.4 Ml Syringe) 40 mg SUBCUT Q24H [facility] Last Admin: 12/21/24 16:33 Dose: 40 mg Documented By: DAVINA Epinephrine (Epinephrine 1 Mg/Ml Vial) 0.3 mg IM Q5M PRN PRN Reason: Anaphylaxis Guaifenesin (Guaifenesin La 600 Mg Tab.Er.12h) 600 mg PO BID [facility] Last Admin: 12/22/24 09:43 Dose: 600 mg Documented By: FIDENCIO Haloperidol (Haloperidol 5 Mg Tablet) 5 mg PO BID [facility] Last Admin: 12/22/24 09:43 Dose: 5 mg Documented By: FIDENCIO Cefepime HCl (Maxipime) 2 gm in 50 mls @ 100 mls/hr IV Q24H [facility] Last Admin: 12/22/24 14:50 Dose: 100 mls/hr Documented By: FIDENCIO Levothyroxine Sodium (Levothyroxine Sodium 88 Mcg Tablet) 88 mcg PO DAILY@0600 [facility] Last Admin: 12/22/24 05:20 Dose: 88 mcg Documented By: FAUZIA [place] Carbonate ([place] Carbonate 300 Mg Capsule) 300 mg PO BEDTIME [facility] Last Admin: 12/21/24 20:13 Dose: 300 mg Documented By: FAUZIA Magnesium Hydroxide (Milk Of Magnesia 30 Ml Oral.Susp) 30 ml PO DAILY PRN PRN Reason: Constipation Magnesium Hydroxide (Milk Of Magnesia 30 Ml Oral.Susp) 30 ml PO DAILY PRN PRN Reason: Constipation Melatonin (Melatonin 3 Mg Tablet) 6 mg PO BEDTIME PRN PRN Reason: Insomnia Multivitamins/Vitamin C (Multivitamin Tablet) 1 tab PO DAILY [facility] Last Admin: 12/22/24 09:45 Dose: 1 tab Documented By: FIDENCIO Olanzapine (Olanzapine 5 Mg Tablet) 5 mg PO DAILY [facility] Last Admin: 12/22/24 09:45 Dose: 5 mg Documented By: FIDENCIO Olanzapine (Olanzapine 7.5 Mg Tablet) 7.5 mg PO BEDTIME [facility] Last Admin: 12/21/24 20:13 Dose: 7.5 mg Documented By: FAUZIA Omeprazole (Omeprazole 20 Mg Capsule.) 20 mg PO DAILY@0630 [facility] Last Admin: 12/22/24 05:20 Dose: 20 mg Documented By: FAUZIA Polyethylene Glycol (Polyethylene Glycol 3350 17 Gm Powd.Pack) 17 gm PO DAILY PRN PRN Reason: Constipation Polyethylene Glycol (Polyethylene Glycol 3350 17 Gm Powd.Pack) 17 gm PO DAILY [facility] Last Admin: 12/22/24 09:45 Dose: 17 gm Documented By: FIDENCIO Sodium Biphosphate/Sodium Phosphate (Sodium Phosphate,[place]-Dibasic 133 Ml Enema) 118 ml [place] DAILY PRN PRN Reason: Constipation Sodium Chloride (0.9 % Sodium Chloride Flush 3 Ml Syringe) 3 ml IVFLUSH QSHIFT [facility] Last Admin: 12/22/24 14:50 Dose: 3 ml Documented By: FIDENCIO Sodium Chloride (Sodium Chloride 0.65 % Nasal 44 Ml Sprbtl) 2 spray NOSTRIL-B Q2H PRN PRN Reason: Congestion Tamsulosin HCl (Tamsulosin Hcl 0.4 Mg Capsule) 0.4 mg PO BEDTIME [facility] Last Admin: 12/21/24 20:12 Dose: 0.4 mg Documented By: FAUZIA Labs 12/20/24 12:54 12/21/24 05:31 Microbiology Microbiology Results: Microbiology 12/20/24 15:42 Urine Culture - Final Urine clean catch - Clean Catch Midstream Proteus mirabilis 12/20/24 14:57 Blood Culture - Preliminary Blood - Venous No growth after 24 hours. 12/20/24 14:57 Blood Culture - Preliminary Blood - Venous No growth after 24 hours. Assessment and Plan (1) Hypoxia: Status: Acute (2) Pneumonia involving right lung: Status: Acute Plan 74 m from SNF brought in after fall. He has advanced cognitive impairment and doesn't communicate and presented from long-term after having an unwitnessed from , he was brought in [address] showed no acute finding, Cervical spine CT no fracture. A routine CXR showed a Pneumonia, O2 saturation is 88 to 89 on room air and better with oxygen. Acute hypoxic respiratory failure due to PNA and likely hypoventilation continue Abx, UTI, same Abx as above Elevated troponin, 444 to 375 likely type 2 mi from above hold anticoagulation cardiology consultations Hypothyroidism synthroid HLD statin BPH -Flomax Morbid obesity weight loss advise Acute lactic acidosis d/t hypoxia cognitive impairment, mood issues and behavior issues continue home meds dvt prophylaxis: levenox Diet: regular Full code per guardian late entry note for 12/21 Quality Stroke Does the patient have a stroke diagnosis?: No VTE Prior VTE?: No VTE Risk Level:: Medical - moderate - high VTE Device Contraindication: Treatment Not Indicated VTE Drug Contraindication: N/A - Med Ordered
[2024-12-21] MEDS: polyethylene glycoL 3350 17 GM POWD.PACK PO (09:14)
--- NOTE | 2024-12-21 09:54 | MHC.CM.PN ---
IMM DELIVERED TO [facility] WHO REQUESTS COPY BE EMAILED. 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 RETURN REFERRAL SENT TO [facility] WITH REQUEST FOR COPY OF [facility]. PT WILL RETURN TO [facility] VIA BLS WHEN MEDICALLY CLEARED.
[2024-12-21 13:49] VITALS: BMI 35.7
--- NOTE | 2024-12-21 13:55 | MHC.CLN ---
NUTRITION CONSULT FOR SKIN INTEGRITY. DIET=REGULAR, GROUND. SKIN WITH STAGE II PRESSURE INJURIES TO RIGHT UPPER AND LOWER BUTTOCKS. ADDING ENSURE MAX BID TO PROMOTE WOUND HEALING. SUPPLEMENT PROVIDES 300 KCALS, 60 G PROTEIN. FOLLOW FOR PO INTAKE AND SKIN INTEGRITY. SEE CLINICAL NUTRITION ASSESSMENT 12/21/24.
[2024-12-21] MEDS: Albuterol/Iprat 2.5/0.5MG 3 ML AMPUL.NEB INHALE ×2 (15:22→19:46)
[2024-12-21 15:23] VITALS: PULSE 79; RESP 18; O2SAT 93
[2024-12-21 15:38] VITALS: BP 118/58; PULSE 79; RESP 18; TEMP 36.2; O2SAT 92
[2024-12-21] MEDS: Enoxaparin Sodium 40 MG/0.4 ML SYRINGE SUBCUT (16:33)
[2024-12-21] MEDS: cefEPime HCl/D5W 2 GM/50 ML PIGGYBACK IV (16:47)
--- NOTE | 2024-12-21 17:15 | HO.WOUND ---
Wound Consult: Initial 74yr old?male admitted [place] [facility] [place] - See progress notes and H&P for detailed history.? Wound consult placed for buttock and scrotum.? Patient agreeable to assessment and photo documentation.? Patient is noted to have male purewick in place when assessed it was note to be leaking. removed and his anatomy was assessed and would be able to use a condom cath. Direct care team applied condom cath and will monitor for effectiveness. The scrotum was assessed and noted for MASD see below for details. The Right buttock was assessed and is consistent with abrasions however the lower lesion is over the bony prominence the ischium and does have a purple pigmentation to the wound edge this will be classified as pressure although it additionally has characteristics consistent with abrasions. Sacrum - red intact and remains blanchable Right Ischium and Buttock Etiology: Stage 2 pressure inury ??Present on Admission Measurements: 0.8cm x 1.2cm x 0.1cm Wound Bed: pale pink wound bed Drainage / Odor: none noted Edges: irregular and purple pigmentation ? Juany wound: there is an abrasion noted above the ischium clean and pale pink wound bed ? No Induration, Fluctuance or Warmth noted Pain: denies Goals of Treatment: ? triad for moist woud healing and to protect from moisture and friction Scrotum Etiology: ??MASD Present on Admission Wound Bed: scattered areas of full thickness tissue loss adherent yelllow slough noted to wound beds Drainage / Odor: none noted Edges: ? irregular Juany wound: ? red pink moist tissue No Induration, Fluctuance or Warmth noted Pain: denies Goals of Treatment: ? Triad to protect from moisture Recommendations: 1. Turn and Reposition every 2 hours and as needed for patient comfort.? Use pillows or wedges to support off loading positions. 2. Off Load all bony prominences with use of pillows and heel boots if needed.? Apply Preventative foams where needed. ? 3. Monitor for incontinence and moisture control, use barrier creams when needed for prevention and treatment. 4. Provide adequate and supplemental nutrition.? 5. Order low air loss mattress. 6. When applicable maintain blood glucose levels per Providers order. 7. Sacrum, buttock and right Ischium - Off Load Pressure with Q2 hr turns and use of pillows - Cleanse with PH balance spray or wipes, pat dry. ?Apply thin layer of Triad to wound bed - only pat and dab no scrub and rub when soiling occurs. Reapply thin layer PRN after each episode of incontinence. 8. Scrotum - Cleanse with PH balance spray or wipes, pat dry. ?Apply thin layer of Triad to wound bed - only pat and dab no scrub and rub when soiling occurs. Reapply thin layer PRN after each episode of incontinence. Re-consult wound care Nurse for wound deterioration or wound changes.
[2024-12-21 19:31] VITALS: BP 115/60; PULSE 79; RESP 18; TEMP 36.8; O2SAT 91
[2024-12-21] MEDS: Tamsulosin HCL 0.4 MG CAPSULE PO (20:12)
[2024-12-21] MEDS: OLANZapine 7.5 MG TABLET PO (20:13)
[2024-12-21] MEDS: Lithium Carbonate 300 MG CAPSULE PO (20:13)
[2024-12-21 23:51] VITALS: BP 115/64; PULSE 74; RESP 20; TEMP 36.6; O2SAT 92
[2024-12-22] VITALS (8 sets, daily range): BP systolic 122–147; BP diastolic 57–83; PULSE 70–73; RESP 18–20; TEMP 36.2–36.6; O2SAT 90–94
[2024-12-22] MEDS: 0.9 % Sodium Chloride Flush 3 ML SYRINGE IVFLUSH ×4 (00:17→20:51)
[2024-12-22] MEDS: Levothyroxine Sodium 88 MCG TABLET PO (05:20)
[2024-12-22] MEDS: Omeprazole 20 MG CAPSULE.DR PO (05:20)
[2024-12-22] MEDS: Albuterol/Iprat 2.5/0.5MG 3 ML AMPUL.NEB INHALE ×4 (07:28→19:52)
[2024-12-22] MEDS: guaiFENesin LA 600 MG TAB.ER.12H PO ×2 (09:43→20:39)
[2024-12-22] MEDS: HaloperidoL 5 MG TABLET PO ×2 (09:43→20:39)
[2024-12-22] MEDS: Acetaminophen 325 MG TABLET 650 MG PO ×3 (09:44→20:39)
[2024-12-22] MEDS: Aspirin 81 MG TAB.CHEW PO (09:45)
[2024-12-22] MEDS: Multivitamin TABLET 1 TAB PO (09:45)
[2024-12-22] MEDS: polyethylene glycoL 3350 17 GM POWD.PACK PO (09:45)
[2024-12-22] MEDS: OLANZapine 5 MG TABLET PO (09:45)
[2024-12-22] MEDS: Atorvastatin Calcium 80 MG TABLET PO (09:45)
[2024-12-22] MEDS: allopurinoL 100 MG TABLET PO (09:45)
[2024-12-22] MEDS: cefEPime HCl/D5W 2 GM/50 ML PIGGYBACK IV (14:50)
--- NOTE | 2024-12-22 16:06 | HO.PM.IMPN ---
Subjective Subjective Date of Service: 12/22/24 Interval History: F/u PNA doing better still on O2 Physical Exam Vital Signs: Vital Signs: Last Vital Signs Temp 97.1 F 12/22/24 15:16 Pulse 70 12/22/24 15:25 Resp 20 12/22/24 15:25 BP 147/75 H 12/22/24 15:16 Pulse Ox 94 12/22/24 15:16 O2 Del Method Nasal Cannula 12/22/24 15:16 O2 Flow Rate 2 12/22/24 15:16 BMI result Body Mass Index 35.7 Const: Other: General: Alert , no acute distress Resp: CTA bilateral CVS: S1,S2,RRR GI: +BS, NT, no distention Skin: No rash Neuro: motor grossly intact Psych: appropriate affect Objective Data Active Medications Acetaminophen (Acetaminophen 325 Mg Tablet) 650 mg PO Q6H PRN PRN Reason: Pain, Mild 1-3,fever,headache Acetaminophen (Acetaminophen 325 Mg Tablet) 650 mg PO TID [facility] Last Admin: 12/22/24 14:50 Dose: 650 mg Documented By: FIDENCIO Al Hydroxide/Mg Hydroxide (Magnesium Hydrox/Alum Hydrox 30 Ml Oral.Susp) 30 ml PO Q4H PRN PRN Reason: Heartburn Al Hydroxide/Mg Hydroxide (Magnesium Hydrox/Alum Hydrox 30 Ml Oral.Susp) 10 ml PO Q6H PRN PRN Reason: GI UPSET Albuterol/Ipratropium (Albuterol/Iprat 2.5/0.5mg 3 Ml Ampul.Neb) 3 ml INHALE RQID [facility] Last Admin: 12/22/24 15:24 Dose: 3 ml Documented By: NIKHIL Allopurinol (Allopurinol 100 Mg Tablet) 100 mg PO DAILY [facility] Last Admin: 12/22/24 09:45 Dose: 100 mg Documented By: FIDENCIO Artificial Tears (Artificial Tears 15 Ml Drops) 1 drop EYE-BOTH Q8H PRN PRN Reason: Dry Eyes Aspirin (Aspirin 81 Mg Tab.Chew) 81 mg PO DAILY [facility] Last Admin: 12/22/24 09:45 Dose: 81 mg Documented By: FIDENCIO Atorvastatin Calcium (Atorvastatin Calcium 80 Mg Tablet) 80 mg PO DAILY [facility] Last Admin: 12/22/24 09:45 Dose: 80 mg Documented By: FIDENCIO Bisacodyl (Bisacodyl 5 Mg Tablet.Dr) 10 mg PO Q24H PRN PRN Reason: Constipation Calcium Carbonate (Calcium Carbonate 750 Mg Tab.Chew) 750 mg PO Q4H PRN PRN Reason: Heartburn Clotrimazole (Clotrimazole 1 % Cream 15 Gm Tube) 1 appl TOPICAL DAILY [facility]; Protocol Last Admin: 12/22/24 14:49 Dose: Not Given Documented By: FIDENCIO Non-Admin Reason: Patient Refused Diphenhydramine HCl (Diphenhydramine Hcl 50 Mg/Ml Vial) 25 mg IM DAILY PRN PRN Reason: Anaphylaxis Enoxaparin Sodium (Enoxaparin Sodium 40 Mg/0.4 Ml Syringe) 40 mg SUBCUT Q24H [facility] Last Admin: 12/21/24 16:33 Dose: 40 mg Documented By: DAVINA Epinephrine (Epinephrine 1 Mg/Ml Vial) 0.3 mg IM Q5M PRN PRN Reason: Anaphylaxis Guaifenesin (Guaifenesin La 600 Mg Tab.Er.12h) 600 mg PO BID [facility] Last Admin: 12/22/24 09:43 Dose: 600 mg Documented By: FIDENCIO Haloperidol (Haloperidol 5 Mg Tablet) 5 mg PO BID [facility] Last Admin: 12/22/24 09:43 Dose: 5 mg Documented By: FIDENCIO Cefepime HCl (Maxipime) 2 gm in 50 mls @ 100 mls/hr IV Q24H [facility] Last Admin: 12/22/24 14:50 Dose: 100 mls/hr Documented By: FIDENCIO Levothyroxine Sodium (Levothyroxine Sodium 88 Mcg Tablet) 88 mcg PO DAILY@0600 [facility] Last Admin: 12/22/24 05:20 Dose: 88 mcg Documented By: FAUZIA [place] Carbonate ([place] Carbonate 300 Mg Capsule) 300 mg PO BEDTIME [facility] Last Admin: 12/21/24 20:13 Dose: 300 mg Documented By: FAUZIA Magnesium Hydroxide (Milk Of Magnesia 30 Ml Oral.Susp) 30 ml PO DAILY PRN PRN Reason: Constipation Magnesium Hydroxide (Milk Of Magnesia 30 Ml Oral.Susp) 30 ml PO DAILY PRN PRN Reason: Constipation Melatonin (Melatonin 3 Mg Tablet) 6 mg PO BEDTIME PRN PRN Reason: Insomnia Multivitamins/Vitamin C (Multivitamin Tablet) 1 tab PO DAILY [facility] Last Admin: 12/22/24 09:45 Dose: 1 tab Documented By: FIDENCIO Olanzapine (Olanzapine 5 Mg Tablet) 5 mg PO DAILY [facility] Last Admin: 12/22/24 09:45 Dose: 5 mg Documented By: FIDENCIO Olanzapine (Olanzapine 7.5 Mg Tablet) 7.5 mg PO BEDTIME [facility] Last Admin: 12/21/24 20:13 Dose: 7.5 mg Documented By: FAUZIA Omeprazole (Omeprazole 20 Mg Capsule.) 20 mg PO DAILY@0630 [facility] Last Admin: 12/22/24 05:20 Dose: 20 mg Documented By: FAUZIA Polyethylene Glycol (Polyethylene Glycol 3350 17 Gm Powd.Pack) 17 gm PO DAILY PRN PRN Reason: Constipation Polyethylene Glycol (Polyethylene Glycol 3350 17 Gm Powd.Pack) 17 gm PO DAILY [facility] Last Admin: 12/22/24 09:45 Dose: 17 gm Documented By: FIDENCIO Sodium Biphosphate/Sodium Phosphate (Sodium Phosphate,[place]-Dibasic 133 Ml Enema) 118 ml [place] DAILY PRN PRN Reason: Constipation Sodium Chloride (0.9 % Sodium Chloride Flush 3 Ml Syringe) 3 ml IVFLUSH QSHIFT [facility] Last Admin: 12/22/24 14:50 Dose: 3 ml Documented By: FIDENCIO Sodium Chloride (Sodium Chloride 0.65 % Nasal 44 Ml Sprbtl) 2 spray NOSTRIL-B Q2H PRN PRN Reason: Congestion Tamsulosin HCl (Tamsulosin Hcl 0.4 Mg Capsule) 0.4 mg PO BEDTIME [facility] Last Admin: 12/21/24 20:12 Dose: 0.4 mg Documented By: FAUZIA Labs 12/20/24 12:54 12/21/24 05:31 Microbiology Microbiology Results: Microbiology 12/20/24 15:42 Urine Culture - Final Urine clean catch - Clean Catch Midstream Proteus mirabilis 12/20/24 14:57 Blood Culture - Preliminary Blood - Venous No growth after 24 hours. 12/20/24 14:57 Blood Culture - Preliminary Blood - Venous No growth after 24 hours. Assessment and Plan (1) Hypoxia: Status: Acute (2) Pneumonia involving right lung: Status: Acute Plan 74 m from SNF brought in after fall. He has advanced cognitive impairment and doesn't communicate and presented from correction after having an unwitnessed from , he was brought in [address] showed no acute finding, Cervical spine CT no fracture. A routine CXR showed a Pneumonia, O2 saturation is 88 to 89 on room air and better with oxygen. Acute hypoxic respiratory failure due to PNA and likely hypoventilation continue Abx, wean off O2 UTI, proteus, same Abx as above Elevated troponin, 444 to 375 likely type 2 mi from above hold anticoagulation cardiology consultations Hypothyroidism synthroid HLD statin BPH -Flomax Morbid obesity weight loss advise Acute lactic acidosis d/t hypoxia cognitive impairment, mood issues and behavior issues continue home meds dvt prophylaxis: levenox Diet: regular Full code per guardian Quality Stroke Does the patient have a stroke diagnosis?: No VTE Prior VTE?: No VTE Risk Level:: Medical - moderate - high VTE Device Contraindication: Treatment Not Indicated VTE Drug Contraindication: N/A - Med Ordered
[2024-12-22] MEDS: Enoxaparin Sodium 40 MG/0.4 ML SYRINGE SUBCUT (17:52)
[2024-12-22] MEDS: OLANZapine 7.5 MG TABLET PO (20:38)
[2024-12-22] MEDS: Lithium Carbonate 300 MG CAPSULE PO (20:39)
[2024-12-22] MEDS: Tamsulosin HCL 0.4 MG CAPSULE PO (20:39)
[2024-12-23] VITALS (7 sets, daily range): BP systolic 126–141; BP diastolic 58–70; PULSE 63–89; RESP 14–18; TEMP 36–36.4; O2SAT 89–96
[2024-12-23] MEDS: Levothyroxine Sodium 88 MCG TABLET PO (05:23)
[2024-12-23] MEDS: Omeprazole 20 MG CAPSULE.DR PO (05:23)
[2024-12-23] MEDS: Albuterol/Iprat 2.5/0.5MG 3 ML AMPUL.NEB INHALE ×3 (08:29→16:04)
[2024-12-23] MEDS: polyethylene glycoL 3350 17 GM POWD.PACK PO (09:31)
[2024-12-23] MEDS: Aspirin 81 MG TAB.CHEW PO (09:31)
[2024-12-23] MEDS: Multivitamin TABLET 1 TAB PO (09:31)
[2024-12-23] MEDS: allopurinoL 100 MG TABLET PO (09:32)
[2024-12-23] MEDS: Acetaminophen 325 MG TABLET 650 MG PO ×2 (09:32→15:48)
[2024-12-23] MEDS: OLANZapine 5 MG TABLET PO (09:32)
[2024-12-23] MEDS: Atorvastatin Calcium 80 MG TABLET PO (09:32)
[2024-12-23] MEDS: guaiFENesin LA 600 MG TAB.ER.12H PO (09:33)
[2024-12-23] MEDS: 0.9 % Sodium Chloride Flush 3 ML SYRINGE IVFLUSH (09:33)
[2024-12-23] MEDS: HaloperidoL 5 MG TABLET PO (09:33)
--- NOTE | 2024-12-23 10:14 | MHC.CLN ---
F/U DIET=REGULAR, GROUND. ENSURE MAX BID IN PLACE TO PROMOTE WOUND HEALING. PROVIDES 300 KCALS 60 G PROTEIN. PO INTAKE USUALLY 50-75%. SEEN BY WOUND RN. SKIN WITH STAGE II PRESSURE INJURY TO RIGHT ISCHIUM AND BUTTOCKS. FOLLOW FOR PO INTAKE AND SKIN INTEGRITY.
--- NOTE | 2024-12-23 10:20 | P.DS_ITS ---
DS: Providers Provider Date of Service: 12/23/24 Date of admission: 12/20/24 16:13 Date of discharge: 12/23/24 Primary care physician: MENA MOSQUERA Consults: 12/20/24 20:02 Consult to Wound Care Routine Reason for consultation: 2 stage II's to right buttocks, stage II's and fungal rash to scrotum 12/21/24 01:27 Consult to Wound Care Routine Reason for consultation: 2: stage II to Right buttocks/fungal to scrotum/B/L abd folds DS: Diagnosis Discharge Diagnosis (1) Hypoxia: Status: Acute (2) Pneumonia involving right lung: Status: Acute DS: Summary Hospital Course Hospital Course: admission hpi Chief Complaint: Fall 74 m from SNF brought in after fall. He has advanced cognitive impairment and doesn't communicate and presented from long-term after having an unwitnessed from , he was brought in [address] showed no acute finding, Cervical spine CT no fracture. A routine CXR showed a Pneumonia, O2 saturation is 88 to 89 on room air and better with oxygen. . WBC is normal, troponin I level was 444 now 375, he reports no chest pain. ECG showed no acute ischemic changes. He has been very agitated, removing IVs, and resisting care and was given Zyprexa and soft wrist restraint. Hospital course: 74 m from SNF brought in after fall. He has advanced cognitive impairment and doesn't communicate and presented from long-term after having an unwitnessed from , he was brought in [address] showed no acute finding, Cervical spine CT no fracture. A routine CXR showed a Pneumonia, O2 saturation is 88 to 89 on room air and better with oxygen. Acute hypoxic respiratory failure due to PNA and likely hypoventilation syncopde. Pneumonia treated with Cefepime and is being afebrile and WBC normal. At baseline likely need oxygen for chronic hypoventilation. Changing antibiotics to Ceftin 500 mg twice daily for 4 more day for a total of 7 daays UTI, proteus, same treatment as above, sensitive to all agent except ampicillin. Elevated troponin, 444 to 375 likely type 2 mi from above, and there was no complaint of chest pain. There was no indication for cardiology evaluation, although initially considered Hypothyroidism continuesynthroid HLD statin BPH -Flomax Morbid obesity weight loss advise Acute lactic acidosis d/t hypoxia cognitive impairment, mood issues and behavior issues continue usual meds To return to SNF Time Attestation Discharge Coordination Time (in mins): 45 Quality: Safe Use of Opioids Does Pt have an Active Cancer Diagnosis on the Problem List?: No Quality: Stroke Does the patient have a stroke diagnosis?: No Physical Exam Vital Signs: Vital Signs: Last Vital Signs Temp 97.6 F 12/23/24 07:00 Pulse 84 12/23/24 08:29 Resp 16 12/23/24 08:29 BP 126/58 L 12/23/24 07:00 Pulse Ox 93 12/23/24 07:00 O2 Del Method Nasal Cannula 12/23/24 07:00 O2 Flow Rate 2 12/23/24 07:00 BMI result Body Mass Index 35.7 Const: Other: General: Alert , no acute distress Resp: CTA bilateral CVS: S1,S2,RRR GI: +BS, NT, no distention Skin: No rash Neuro: motor grossly intact Psych: appropriate affect DS: Data Data Completed and Pending Labs on day of discharge: Preliminary micro results at discharge 12/20/24 14:57 Blood Culture - Preliminary Blood - Venous No growth after 48 hours. 12/20/24 14:57 Blood Culture - Preliminary Blood - Venous No growth after 48 hours. Discharge Plan Discharge Anticipated Discharge Date/Time: 12/22/24 13:00 Patient Disposition: er [facility] Referrals: Steven BUCK [Outside] - 1 Week (TRANSFER FOR RESUMPTION OF CUSTODIAL CARE) MENA MOSQUERA [Primary Care Provider] - 1 Week Discharge Medications: Continued multivitamin Tablet 1 tab PO DAILY haloperidol 5 mg Tablet 5 mg PO BID Rx Instructions: HOLD IF LETHARGIC polyethylene glycol 3350 [Miralax] 17 gram Powder In Packet 17 g PO DAILY olanzapine 5 mg Tablet 5 mg PO DAILY allopurinol 100 mg Tablet 100 mg PO DAILY olanzapine 7.5 mg Tablet 7.5 mg PO BEDTIME acetaminophen 500 mg Tablet 1,000 mg PO TID levothyroxine 88 mcg Tablet 88 mcg PO DAILY diphenhydramine HCl 50 mg/mL Solution 25 mg IM DAILY PRN (Reason: Anaphylaxis) Rx Instructions: may repeat once in 30-60 minutes if not effective magnesium hydroxide [Milk of Magnesia] 400 mg/5 mL Suspension 30 ml PO DAILY PRN (Reason: Constipation) tamsulosin [Flomax] 0.4 mg Capsule 0.4 mg PO BEDTIME carboxymethylcellulose sodium 0.5 % Drops 1 drp OPHTHALMIC (EYE) Q8H PRN (Reason: Dry Eyes) lithium carbonate 300 mg Capsule 300 mg PO BEDTIME [place] Enema 19-7 gram/118 mL Enema 118 ml [place] DAILY PRN (Reason: Constipation) omeprazole [Prilosec] 20 mg Capsule,Delayed Release(Dr/Ec) 20 mg PO DAILY aspirin 81 mg Tablet,Chewable 81 mg PO DAILY alum-mag hydroxide-simeth [Maalox] 200-200-20 mg/5 mL Suspension 10 ml PO Q6H PRN (Reason: GI UPSET) Rx Instructions: administer between meals and at bedtime epinephrine 0.3 mg/0.3 mL Auto-Injector 0.3 mg IM Q5M PRN (Reason: Anaphylaxis) Rx Instructions: for 2 doses clotrimazole 1 % Cream 1 appl TOPICAL DAILY bisacodyl 5 mg Tablet 10 mg PO Q24H PRN (Reason: Constipation) Saline Nasal 0.65 % Aerosol,[place] 2 spray INTRANASAL Q2H PRN (Reason: Congestion) rosuvastatin 20 mg Tablet 20 mg PO DAILY guaifenesin [Mucinex] 600 mg Tablet Extended Release 12hr 600 mg PO BID ipratropium-albuterol 20-100 mcg/actuation Mist 1 puff INHALATION QID Rx Instructions: space evenly during waking hours Diet: Advance to usual diet Activity on Discharge: As tolerated Stand Alone Forms: Patient Portal Discharge page Print Language: Bahamian
[2024-12-23 11:01] LABS: Hemoglobin 11.7 g/dl (14.0-18.0); Mean Corpuscular HGB Conc 30.8 g/dl (31.0-36.0); Mean Corpuscular Hemoglobin 26.7 pg (27.0-33.0); Mean Corpuscular Volume 86.6 fL (80.0-98.0); Mean Platelet Volume 11.1 fL (9.4-12.4); Platelet Count 184 X10*3/uL (160-400); Red Blood Count 4.39 X10*6/uL (4.60-5.80); Red Cell Distribution Width 15.7 % (11.0-16.0); White Blood Count 8.2 X10*3/uL (4.8-10.8)
[2024-12-23 11:12] LABS: Anion Gap 10 (12-20); Blood Urea Nitrogen 15 mg/dL (9-16); Calcium 9.3 mg/dL (8.4-10.2); Carbon Dioxide 24 mmol/L (22-29); Chloride 111 mmol/L (96-108); Creatinine Clr Calc Pharmacy 106.9; Estimated Glomerular Filt Rate > 60; Glucose Random 132 mg/dL (60-115); Potassium 3.8 mmol/L (3.3-5.1); Sodium 141 mmol/L (135-145)
[2024-12-23] MEDS: cefuroxime axetiL 500 MG TABLET PO (11:29)
--- NOTE | 2024-12-23 12:19 | MHC.CM.PN ---
Pt is medically cleared for discharge today back to LTC, he will return to [facility] via [facility]. Guardian Ginger Jones was called and notified of discharge.
== END 2024-12-23 17:13 | disposition skilled nursing facility (03) | DRG 193 ==
LOC: HO.ED 15:21 → HO.EDOVER 16:29 → HO.S3 19:05
PROVIDERS: Admitting Provider Internal Medicine; Emergency Provider Emergency Medicine; PCP Emergency Medicine; Visit Provider Internal Medicine
DX: J18.9 Pneumonia, unspecified organism (principal); I21.A1 Myocardial infarction type 2; J96.01 Acute respiratory failure with hypoxia; N39.0 Urinary tract infection, site not specified; E87.21 Acute metabolic acidosis; F03.90 Unspecified dementia, unspecified severity, without behavioral disturbance, psychotic disturbance, mood disturbance, and anxiety; N40.0 Benign prostatic hyperplasia without lower urinary tract symptoms; E03.9 Hypothyroidism, unspecified; B96.4 Proteus (mirabilis) (morganii) as the cause of diseases classified elsewhere; E78.5 Hyperlipidemia, unspecified; W19.XXXA Unspecified fall, initial encounter; E66.01 Morbid (severe) obesity due to excess calories; Z68.35 Body mass index [BMI] 35.0-35.9, adult; Z71.3 Dietary counseling and surveillance; Z20.822 Contact with and (suspected) exposure to COVID-19; Z79.82 Long term (current) use of aspirin; Z79.890 Hormone replacement therapy; Z79.899 Other long term (current) drug therapy
CPT/HCPCS: 0241U; 36415; 70450; 71045; 71250; 72125; 80048; 80053; 81001; 82248; 82803; 83605; 83735; 84484; 85025; 85027; 87040; 87086; 87088; 87186; 93005; 94640; 99285; J0692; J1650; J2359; J3371

== ENCOUNTER → 2024-12-20 12:01 | Outpatient (BNV) | payer MEDICARE, SELFPAY | PROVIDERS: Emergency Provider Emergency Medicine; Visit Provider Radiology Diagnostic Radiology | DX: R91.8 Other nonspecific abnormal finding of lung field (principal); S19.9XXA Unspecified injury of neck, initial encounter; R41.82 Altered mental status, unspecified; R06.02 Shortness of breath | CPT/HCPCS: 70450; 71045; 71250; 72125 ==

== ENCOUNTER → 2024-12-20 12:18 | Outpatient (BNV) | payer MEDICARE, SELFPAY | PROVIDERS: Emergency Provider Emergency Medicine; PCP Emergency Medicine; Visit Provider Internal Medicine | DX: I63.9 Cerebral infarction, unspecified (principal) | CPT/HCPCS: 93010 ==

== ENCOUNTER → 2024-12-20 16:13 | Outpatient (BNV) | payer MEDICARE, SELFPAY | PROVIDERS: Admitting Provider Internal Medicine; Emergency Provider Emergency Medicine; PCP Emergency Medicine; Visit Provider Internal Medicine | DX: R09.02 Hypoxemia (principal); J18.9 Pneumonia, unspecified organism | CPT/HCPCS: 99232 ==